=== PATIENT | female | born 1970 | race Caucasian/White ===

== ENCOUNTER → 2020-01-29 15:42 | Outpatient (BNVA) | payer MEDICARE, MEDICAID, SELFPAY | PROVIDERS: Visit Provider Internal Medicine | DX: E11.9 Type 2 diabetes mellitus without complications (principal); Z79.4 Long term (current) use of insulin; K75.81 Nonalcoholic steatohepatitis (NASH); E78.5 Hyperlipidemia, unspecified; Q90.9 Down syndrome, unspecified | CPT/HCPCS: 80053; 80061; 83036; 84443 ==

== ENCOUNTER 2020-03-13 08:40 | Outpatient (CLI) | payer MEDICARE, MEDICAID, SELFPAY ==
--- NOTE | 2020-03-13 08:49 | MM_ITS ---
WS: [id number] Bilateral screening digital mammogram, 03/13/2020 Clinical Data: SCREENING Comparison: 02/07/2019, 09/12/2017, 09/05/2016, 09/02/2015. Findings: The breast parenchymal pattern shows fibroglandular tissue No spiculated masses or clustered calcific ations are seen. There are no secondary signs of carcinoma. MM/[id number] Impression: 1. Negative bilateral mammogram unchanged. 2. Recommend annual screening mammograms. BIRADS: 1-Negative FOLLOW UP: 1 Year Follow-up The CAD freight checker was used.
== END 2020-03-13 08:41 | disposition home or self-care (01) ==
LOC: RADSHAW 08:45
PROVIDERS: PCP Internal Medicine; Visit Provider Internal Medicine
DX: Z12.31 Encounter for screening mammogram for malignant neoplasm of breast (principal)
CPT/HCPCS: 77067

== ENCOUNTER 2020-03-13 09:44 | Outpatient (CLI) | payer MEDICARE, MEDICAID, SELFPAY ==
[2020-03-13 10:40] LABS: Estmated Average Glucose 131; Hemoglobin A1C 6.2 % (4.0-6.0)
[2020-03-13 10:45] LABS: Alanine Aminotransferase 40 U/L (0-33); Albumin Level 4.5 g/dL (3.5-5.2); Alkaline Phosphatase 101 IU/L (35-105); Anion Gap 15.3 (5-19); Aspartate Amino Transferase 39 U/L (0-32); Blood Urea Nitrogen 13 mg/dL (6-20); Calcium 10.1 mg/dL (8.5-10.5); Carbon Dioxide 26 mmol/L (22-29); Chloride 102 mmol/L (98-107); Chol HDL Ratio 3.22 mg/dL (0.0-4.40); Cholesterol 148 mg/dL (0-200); Glomerular Filtration Rate 106.3 mL/min (90-130); Glucose 104 mg/dL (65-115); HDL Cholesterol 46 mg/dL (60-100); LDL Cholesterol Calculated 77 mg/dL (50-129); LDL HDL Ratio 1.67 RATIO (0.00-3.22); Osmolality Calculated 288 mOsm/kg (285-295); Potassium 4.3 mmol/L (3.5-5.1); Sodium 139 mmol/L (136-145); Total Bilirubin 0.5 mg/dL (0.15-1.2); Total Protein 7.5 g/dL (6.6-8.7); Triglycerides 125 mg/dL (0-150)
== END 2020-03-13 09:45 | disposition home or self-care (01) ==
LOC: LAB 09:47
PROVIDERS: PCP Internal Medicine; Visit Provider Internal Medicine
DX: E11.9 Type 2 diabetes mellitus without complications (principal); Q90.9 Down syndrome, unspecified; E78.5 Hyperlipidemia, unspecified; Z79.4 Long term (current) use of insulin; K75.81 Nonalcoholic steatohepatitis (NASH)
CPT/HCPCS: 36415; 80053; 80061; 83036; 88262

== ENCOUNTER → 2020-10-12 15:25 | Outpatient (BNVA) | payer MEDICARE, MEDICAID, SELFPAY | PROVIDERS: PCP Internal Medicine; Visit Provider Internal Medicine | DX: Z01.812 Encounter for preprocedural laboratory examination (principal); Z12.11 Encounter for screening for malignant neoplasm of colon; Z20.822 Contact with and (suspected) exposure to COVID-19 | CPT/HCPCS: 87635 ==

== ENCOUNTER 2020-10-16 07:31 | Day surgery (SDC) | payer MEDICARE, MEDICAID, SELFPAY ==
[2020-10-15 14:10] VITALS: BMI 32.4
--- NOTE | 2020-10-16 08:06 | ANES.PREANE2 ---
Pre-Anesthetic Assessment Pre-Anesthetic Assessment: Height/Weight: Height 1.52 m Weight 75.296 kg Preop Diagnosis: e Proposed Procedure: Operation Date: 10/16/20 09:00 Proposed Procedures p Colonoscopy G0121 Z12.11(Not Applicable) - Cedric Padilla MD Was Beta Cristela taken within 24 hours: N/A Was Clonidine taken within 24 hours: N/A Social: Social History: No alcohol and No tobacco Exam: Pre-Anes Outpt Exam: alert, oriented x 3, clear to auscultation bilaterally and regular rate & rhythm Airway: Submandibular: WNL Cervical ROM: WNL MP: 2 Dentition: Chipped Metabolic: Metabolic: DM, Hyperlipidemia and Morbid obesity Neuropsych: Comments: MR Anesthetic Plan: ASA status: 3 Anesthesia: MAC Risk of > 500 ml blood loss (7ml/kg in children): No PFSH Anesthesia PFSH: Medical History (Updated 10/06/20 @ 09:52 by Cedric Padilla MD) Diabetes Dyslipidemia NLD (necrobiosis lipoidica diabeticorum) Social History Smoking and tobacco status: never smoked Alcohol intake: never Adopted: No History of recent travel: No Current gender identity: Female Data Anesthesia Cardiac Studies: No Data to Display
[2020-10-16 08:12] VITALS: BP 105/72; PULSE 79; RESP 16; TEMP 36.1; O2SAT 100
[2020-10-16] MEDS: sodium chloride 0.9% 1,000 ML 30 ML IV (08:21)
[2020-10-16 08:25] LABS: Glucose Point of Care 97 mg/dL (70-110)
--- NOTE | 2020-10-16 09:11 | W.PM.OPSFHP ---
Same Day Surgery H&P Indication for Procedure/HPI DATE OF PROCEDURE: October 16, 2020 CHIEF COMPLAINT/INDICATIONFOR SURGICAL PROCEDURE: Routine screening average risk PREOP DIAGNOSIS: e PLANNED PROCEDRUE: Operation Date: 10/16/20 09:00 Proposed Procedures p Colonoscopy G0121 Z12.11(Not Applicable) - Cedric Padilla MD Medications/Allergies* Allergies/Adverse Reactions Allergy/AdvReac Type Severity Reaction Status Date / Time latex Allergy ALGY-Rash Verified 10/16/20 08:10 metformin Allergy ADR-Diarrhe Verified 10/16/20 08:10 a Current Medications: Generic Name Dose Route Start Last Admin Trade Name Freq PRN Reason Stop Dose Admin Sodium Chloride 1,000 mls @ 30 mls/hr 10/16/20 07:45 10/16/20 08:21 Sodium Chloride 0.9% IV 10/17/20 07:44 30 mls/hr .Q24H PERRI Administration Pertinent History/Comorbid Conditions* Medical History (Updated 10/06/20 @ 09:52 by Cedric Padilla MD) Diabetes Dyslipidemia NLD (necrobiosis lipoidica diabeticorum) Social History Smoking and tobacco status: never smoked Alcohol intake: never Adopted: No History of recent travel: No Current gender identity: Female Pertinent Exam Findings alert, oriented x 3, clear to auscultation bilaterally and regular rate & rhythm Recommendations Surgery/Procedure today Coding Level of Care Code Acute Buffer Inflated Pad for Graciela Felix
--- NOTE | 2020-10-16 09:37 | ANE.PACU2 ---
Inpatient post-anesthesia follow up: Airway intact: Yes Vital signs: Temperature 97 F Pulse Rate 79 Respiratory Rate 16 Blood Pressure 105/72 Pulse Oximetry 100 Oxygen Delivery Me thod Room Air Oxygen Flow Rate Fraction of Inspir ed Oxygen Hydration adequate: Yes Nausea and vomiting: No Pain level: 1 Mental status: Baseline
[2020-10-16 09:44] VITALS: BP 94/64; PULSE 74; RESP 18; TEMP 36.1; O2SAT 94
[2020-10-16 09:54] VITALS: BP 97/65; PULSE 85; RESP 18; O2SAT 97
== END 2020-10-16 09:57 | disposition home or self-care (01) ==
PROVIDERS: PCP Internal Medicine; Visit Provider Internal Medicine
PROC: 0DJD8ZZ Inspection of Lower Intestinal Tract, Via Natural or Artificial Opening Endoscopic (ICD-10-PCS; CPT 45378; principal; 2020-10-16 09:00)
DX: Z12.11 Encounter for screening for malignant neoplasm of colon (principal); K57.30 Diverticulosis of large intestine without perforation or abscess without bleeding; E78.5 Hyperlipidemia, unspecified; E11.9 Type 2 diabetes mellitus without complications; E66.01 Morbid (severe) obesity due to excess calories; Z68.32 Body mass index [BMI] 32.0-32.9, adult
CPT/HCPCS: 36416; 82962; 96360; G0121; J2704; J7030

== ENCOUNTER 2020-11-06 14:43 | Outpatient (CLI) | payer MEDICARE, MEDICAID, SELFPAY ==
--- NOTE | 2020-11-06 15:15 | XR_ITS ---
WS: [id number] SCREENING DEXA SCAN [place] CLINICAL INFORMATION: bone mass study COMPARISON: None. FINDINGS: The L1-L4 bone mineral density measures 1.231 g/cm2. This corresponds to a T score score of 0.4 and Z score of 0.5. Left femoral neck bone mineral density measures 0.977 g/cm2. This corresponds to a T score of -0.2 an d Z score of 0.0. Right femoral neck bone mineral density measures 0.964 g/cm2. This corresponds to a T score -0.3of an d Z score of -0.1. Mean femoral neck bone mineral density measures 0.970 g/cm2. This corresponds to a T score of -0.3 an d Z score of 0.0. XR/XR DEXA axial skeleton* [id number] IMPRESSION: Normal bone mineralization. Patient's FRAX calculated 10 year probability for major osteoporotic fracture i s 3.8 % and osteoporotic hip fracture is 0.2%.
== END 2020-11-06 14:44 | disposition home or self-care (01) ==
LOC: RADWPI 14:50
PROVIDERS: PCP Internal Medicine; Visit Provider Internal Medicine
DX: Z78.0 Asymptomatic menopausal state (principal)
CPT/HCPCS: 77080

== ENCOUNTER → 2021-03-18 15:20 | Outpatient (BNVA) | payer MEDICARE, MEDICAID, SELFPAY | PROVIDERS: PCP Internal Medicine; Visit Provider Internal Medicine | DX: Z79.4 Long term (current) use of insulin; E78.5 Hyperlipidemia, unspecified; E11.620 Type 2 diabetes mellitus with diabetic dermatitis | CPT/HCPCS: 80053; 80061; 83036; 84443 ==

== ENCOUNTER 2021-09-17 07:47 | Outpatient (CLI) | payer MEDICARE, MEDICAID, SELFPAY ==
--- NOTE | 2021-09-17 07:53 | MM_ITS ---
WS: [id number] BILATERAL 3D TOMOSYNTHESIS DIGITAL SCREENING MAMMOGRAPHY WITH CAD CLINICAL INFORMATION: SCREENING HISTORY: Screening mammogram. No current complaints. COMPARISON: March 13, 2020 TECHNIQUE: Bilateral CC and MLO views. FINDINGS: Scattered fibroglandular densities bilaterally. A few incidental punctate calcifications. Lucent cent ered calcifications LEFT breast. No suspicious focal mass, asymmetry, calcifications, or architectura l distortion. No evidence of malignancy. MM/[id number] IMPRESSION: BI-RADS: 2-Benign FOLLOW UP: 1 Year Follow-up Recommend return to annual screening mammography.
== END 2021-09-17 07:48 | disposition home or self-care (01) ==
LOC: RADSHAW 07:49
PROVIDERS: PCP Internal Medicine; Visit Provider Internal Medicine
DX: Z12.31 Encounter for screening mammogram for malignant neoplasm of breast (principal)
CPT/HCPCS: 77063; 77067

== ENCOUNTER 2022-04-06 11:19 | Outpatient (CLI) | payer MEDICARE, MEDICAID, SELFPAY ==
[2022-04-06 11:44] LABS: Basophils % 0.5 %; Eosinophils # 0.1 10^3/uL (0.0-0.8); Eosinophils % 1.2 %; Hematocrit 40.2 % (37.0-47.0); Hemoglobin 12.9 g/dL (11.5-15.3); Lymphocytes # 2.4 10^3/uL (0.8-4.8); Lymphocytes % 39.7 %; Mean Corpuscular HGB Conc 32.1 g/dL (30.0-36.0); Mean Corpuscular Hemoglobin 27.2 pg (28.0-34.0); Mean Corpuscular Volume 84.8 fl (81-99); Mean Platelet Volume 9.5 fL (7.4-10.4); Monocytes # 1.1 10^3/uL (0.2-0.9); Monocytes % 18.3 %; Neutrophils # 2.37 10^3/uL (1.8-7.7); Neutrophils % 39.6 %; Nucleated Red Blood Cells % 0 %; Platelet Count 209 10^3/cmm (130-400); Red Blood Count 4.74 10^6/uL (4.1-5.3); Red Cell Distribution Width 14.5 % (12.1-15.1)
[2022-04-06 12:31] LABS: Alanine Aminotransferase 30 U/L (0-33); Albumin Level 3.9 g/dL (3.5-5.2); Alkaline Phosphatase 65 U/L (35-105); Anion Gap 15.4 (5-19); Aspartate Amino Transferase 28 U/L (0-32); Blood Urea Nitrogen 15 mg/dL (6-20); Calcium 9.4 mg/dL (8.5-10.5); Carbon Dioxide 26 mmol/L (22-29); Chloride 102 mmol/L (98-107); Chol HDL Ratio 3.71 mg/dL (0.0-4.40); Cholesterol 130 mg/dL (0-200); Globulin 2.9 g/dL (1.3-4.6); Glomerular Filtration Rate 105.4 mL/min (90-130); Glucose 64 mg/dL (65-115); HDL Cholesterol 35 mg/dL (60-100); LDL Cholesterol Calculated 65 mg/dL (50-129); LDL HDL Ratio 1.86 RATIO (0.00-3.22); Osmolality Calculated 287 mOsm/kg (285-295); Potassium 4.4 mmol/L (3.5-5.1); Sodium 139 mmol/L (136-145); Thyroid Stimulating Hormone 3.43 uIU/mL (0.27-4.20); Total Bilirubin 0.8 mg/dL (0.15-1.2); Total Protein 6.8 g/dL (6.6-8.7); Triglycerides 150 mg/dL (0-150)
[2022-04-06 13:28] LABS: Estmated Average Glucose 146; Hemoglobin A1C 6.7 % (4.0-6.0)
== END 2022-04-06 11:20 | disposition home or self-care (01) ==
LOC: LAB 11:23
PROVIDERS: PCP Internal Medicine; Visit Provider Internal Medicine
DX: E11.9 Type 2 diabetes mellitus without complications (principal); Z79.4 Long term (current) use of insulin
CPT/HCPCS: 36415; 80053; 80061; 83036; 84443; 85025

== ENCOUNTER 2022-09-08 14:31 | Inpatient (IN) | payer MEDICARE, MEDICAID, SELFPAY ==
[2022-09-08] VITALS (14 sets, daily range): BP systolic 91–112; BP diastolic 57–71; PULSE 90–117; RESP 16–20; TEMP 36.4–37.4; O2SAT 94–100; BMI 29.9; BMI 30.4
--- NOTE | 2022-09-08 16:19 | ED_ITS ---
HPI - Recheck/Abnormal Lab/Rx General: Chief Complaint: Recheck/Abnormal Lab/Rx Stated Complaint: was sent by dr. padilla for transfusion Time Seen by Provider: 09/08/22 15:44 Source: patient and other (Caregiver) Mode of arrival: ambulatory History of Present Illness: 52-year-old female who presents emergency room with complaints of abnormal lab. She was sent by Dr. Padilla. Her hemoglobin is found to be low. She is tachycardic on arrival but she denies any symptoms. No chest or abdominal pain no hematochezia melena hematemesis or coffee-ground emesis. Patient's past medical and surgical history is reviewed she is ld betic. No UTI cardiac or respiratory symptoms. She is relatively pale in appearance and mildly hypotensive MD complaint: abnormal lab Symptoms since prior visit: no new symptoms Context: called for abnormal lab result Associated symptoms: none Review of Systems Const: Denies: fever(s), chills, body aches, change in appetite, fatigue or malaise ENMT: Denies: throat pain, ear or mastoid pain, nasal discharge or nasal congestion Card: Denies: chest pain, edema, dyspnea on exertion or orthopnea Resp: Denies: dyspnea, productive cough or non-productive cough GI: Denies: abdominal pain, nausea, vomiting, hematemesis, coffee ground emesis, diarrhea, constipation, bloating, hematochezia or melena : Denies: flank pain, difficulty voiding, dysuria, urinary frequency or urinary urgency Skin/Breast: Denies: rash or pruritus PFS ED PFSH: Medical History Diabetes Dyslipidemia NLD (necrobiosis lipoidica diabeticorum) Social History Smoking and tobacco status: never smoked Alcohol intake: never Adopted: No Current gender identity: Female Physical Exam Const: GENERAL APPEARANCE: cooperative and comfortable OR IENTATION/CONSCIOUSNESS: Yes awake, Yes oriented to person, Yes oriented to place and Yes oriented to time HENMT: COMMON NORMALS: normocephalic, atraumatic and hearing grossly normal bilaterally HEAD & SCALP: normocephalic and atraumatic Resp: COMMON NORMALS: normal respiratory effort, No retractions, No use of accessory muscles and clear to auscultation bilaterally AUSCULTATION: clear to auscultation bilaterally Cardio: COMMON NORMALS: regular rate, regular rhythm and No murmurs present (Cardio) RATE: regular rate RHYTHM: regular rhythm GI: COMMON NORMALS: Soft to palpation and No hepatosplenomegaly present AUSCULTATION: Yes normoactive bowel sounds PALPATION: Yes Soft to palpation, No Tenderness to palpation present (GI), No Guarding due to palpation present (GI) and Yes No hepatosplenomegaly present RECTAL EXAM: visual inspection normal, normal sphincter tone and heme negative stool Extremity: COMMON NORMALS: normal to inspection, capillary refill normal, no clubbing, cyanosis or edema, no calf tenderness and no pedal edema Neuro: SENSORIUM/ORIENTATION: Yes oriented to person, Yes oriented to place and Yes oriented to time Skin: COMMON NORMALS: no rashes or lesions noted GENERAL SKIN EXAM: no rashes or lesions noted Course Vital Signs: Vital signs: Vital Signs Temperature 97.9 F 09/09/22 07:52 Pulse Rate 89 09/09/22 07:52 Respiratory Rate 18 09/09/22 07:52 Blood Pressure 97/62 09/09/22 07:52 Pulse Oximetry 97 09/09/22 07:52 Oxygen Delivery Me thod 09/09/22 07:52 MDM - Recheck/Abnormal Lab/Rx Medical Decision Making Significant anemia with a MCV that is in the normal range. Hemoccult is negative. Will admit transfuse patient may need EGD consulted to the hospitalist orders written discussed with patient and caregiver. Lab Data 09/08/22 16:05 09/08/22 16:05 Laboratory Results WBC 4.9 10^3/uL (4.0-10.0) 09/08/22 16:05 RBC 2.07 10^6/uL (4.1-5.3) L 09/08/22 16:05 Hgb 5.9 g/dL (11.5-15.3) L* 09/08/22 16:05 Hct 19.0 % (37.0-47.0) L* 09/08/22 16:05 MCV 91.8 fl (81-99) 09/08/22 16:05 MCH 28.5 pg (28.0-34.0) 09/08/22 16:05 MCHC 31.1 g/dL (30.0-36.0) 09/08/22 16:05 RDW 17.2 % (12.1-15.1) H 09/08/22 16:05 Plt Count 166 10^3/cmm (130-400) 09/08/22 16:05 MPV 9.8 fL (7.4-10.4) 09/08/22 16:05 Lymph % (Auto) Not Reportable 09/08/22 16:05 [place] % (Auto) Not Reportable 09/08/22 16:05 Lymph # (Auto) Not Reportable 09/08/22 16:05 [place] # (Auto) Not Reportable 09/08/22 16:05 Total Counted 100 (0-100) 09/08/22 16:05 Atypical Lymphs % Not Reportable 09/08/22 16:05 Absolute Neutrophils 1.7 10^3/cmm (1.4-6.5) 09/08/22 16:05 Segmented Neutrophils 31 % 09/08/22 16:05 Abs Segm Neuts (Man) 1.5 10/cmm (1.6-7.1) L 09/08/22 16:05 Band Neutrophils 3.0 % 09/08/22 16:05 Abs Band Neuts (Man) 0.1 10^3/cmm (0.0-1.2) 09/08/22 16:05 Lymphocytes (Manual) 36 % 09/08/22 16:05 Monocytes (Manual) 18.0 % 09/08/22 16:05 Absolute Monocytes 0.9 10^3/cmm (0.1-0.6) H 09/08/22 16:05 Eosinophils (Manual) 1 % 09/08/22 16:05 Absolute Eosinophils 0.0 10^3/cmm (0.0-0.7) 09/08/22 16:05 Basophils (Manual) 0.0 % 09/08/22 16:05 Absolute Basophils 0.0 10^3/cmm (0.0-0.2) 09/08/22 16:05 Metamyelocytes 5.0 % 09/08/22 16:05 Myelocytes 4.0 % 09/08/22 16:05 Nucleated RBCs 2.0 /100WBC (0-1) H 09/08/22 16:05 Platelet Estimate Normal (Normal) 09/08/22 16:05 PT 14.00 SECONDS (12.1-14.9) 09/08/22 16:05 INR 1.05 (0.8-1.2) 09/08/22 16:05 APTT 25.4 SECONDS (23.9-36.7) 09/08/22 16:05 Sodium 135 mmol/L (136-145) L 09/08/22 16:05 Potassium 4.1 mmol/L (3.5-5.1) 09/08/22 16:05 Chloride 100 mmol/L (98-107) 09/08/22 16:05 Carbon Dioxide 25 mmol/L (22-29) 09/08/22 16:05 Anion Gap 14.1 (5-19) 09/08/22 16:05 BUN 24 mg/dL (6-20) H 09/08/22 16:05 Creatinine 0.8 mg/dL (0.5-0.9) 09/08/22 16:05 GFR Calculation 75.3 mL/min (90-130) L 09/08/22 16:05 Glucose 151 mg/dL (65-115) H 09/08/22 16:05 Calculated Osmolality 287 mOsm/kg (285-295) 09/08/22 16:05 Calcium 9.4 mg/dL (8.5-10.5) 09/08/22 16:05 Iron 138 ug/dL (37-145) 09/08/22 16:05 TIBC 294 mcg/dl 09/08/22 16:05 % Saturation 46.9 % (20-50) 09/08/22 16:05 Unsat Iron Binding 156 ug/dL (112-347) 09/08/22 16:05 Transferrin 255 mg/dL (200-360) 09/08/22 16:05 Ferritin 408 ng/mL (15-150) H 09/08/22 16:05 Vitamin B12 1053 pg/mL (232-1245) 09/08/22 16:05 Folate > 20.0 ng/mL (4.8-37.3) 09/08/22 16:05 Blood Type A Positive 09/08/22 16:05 Rho(D) Type Positive 09/08/22 16:05 Antibody Screen Negative 09/08/22 16:05 Crossmatch See Detail 09/08/22 16:05 Discharge Plan Discharge Patient Disposition: Placed in Observation Admit Provider: Juan Hood Clinical Impression: Anemia Coding Level of Care Code ED Rn Long Term Care for Graciela Felix
[2022-09-08 16:36] LABS: Mean Corpuscular HGB Conc 31.1 g/dL (30.0-36.0); Mean Corpuscular Hemoglobin 28.5 pg (28.0-34.0); Mean Corpuscular Volume 91.8 fl (81-99); Mean Platelet Volume 9.8 fL (7.4-10.4); Platelet Count 166 10^3/cmm (130-400); Red Blood Count 2.07 10^6/uL (4.1-5.3); Red Cell Distribution Width 17.2 % (12.1-15.1); White Blood Count 4.9 10^3/uL (4.0-10.0)
[2022-09-08 16:54] LABS: INR 1.05 (0.8-1.2)
[2022-09-08 16:55] LABS: Partial Thromboplastin Time 25.4 SECONDS (23.9-36.7)
[2022-09-08 16:57] LABS: Anion Gap 14.1 (5-19); Blood Urea Nitrogen 24 mg/dL (6-20); Calcium 9.4 mg/dL (8.5-10.5); Carbon Dioxide 25 mmol/L (22-29); Chloride 100 mmol/L (98-107); Glomerular Filtration Rate 75.3 mL/min (90-130); Glucose 151 mg/dL (65-115); Osmolality Calculated 287 mOsm/kg (285-295); Potassium 4.1 mmol/L (3.5-5.1); Sodium 135 mmol/L (136-145)
[2022-09-08 17:12] LABS: Slide Review Slide Review Perform
[2022-09-08 17:15] LABS: Hemoglobin 5.9 g/dL (11.5-15.3)
[2022-09-08 17:18] LABS: Absolute Neutrophil 1.7 10^3/cmm (1.4-6.5); Absolute Segmented Neutrophil 1.5 10/cmm (1.6-7.1); Band Neutrophils Absolute 0.1 10^3/cmm (0.0-1.2); Eosinophils 1 %; Lymphocytes 36 %; Monocytes Absolute 0.9 10^3/cmm (0.1-0.6); Platelet Estimate Normal (Normal); Segmented Neutrophils 31 %; Total Cells Counted 100 (0-100)
--- NOTE | 2022-09-08 17:51 | P.HP_ITS ---
Providers/Chief Complaint Primary Care Provider: Cedric Padilla MD Chief Complaint: was sent by dr. padilla for transfusion History of Present Illness Luma Knapp is a 52 year old female with past medical history of diabetes, intellectual disability, Was sent by the primary care physician to ER for the management of abnormal lab her hemoglobin was found to be 5.9 and hematocrit 19, when I interacted with the patient, she denied any chest pain shortness of breath palpitation, abdominal pain nausea vomiting, she was slightly tachycardic in the ER with maximum noted heart rate of 117. Pertinent labs: WBC 4.9, H&H 5.9/19 PLT : 166 , sodium 135, potassium 4.1, BUN 24, serum creatinine 0.8, random blood sugar 151, PT 14 INR 1.05, APTT 25. FOBT negative. Review of Systems General: Reports: 10 or more systems reviewed and unremarkable except in HPI and below Const: Denies: fever(s), chills, body aches, change in appetite or diaphoresis Card: Denies: palpitations, edema, swelling of feet/ankles, dyspnea on exertion, orthopnea or leg pain with exertion Resp: Denies: dyspnea, productive cough, wheezing or pain on inspiration GI: Denies: abdominal pain, nausea, vomiting, diarrhea or constipation : Denies: flank pain Musc: Denies: back pain, extremity pain or extremity swelling Neuro: Denies: headache(s), difficulty walking or confusion Medications/Allergies Home Medications Medication Instructions Recorded Confirmed Last Taken Type magnesium hydroxide 400 mg/5 mL 30 ml PO DAILY PRN constipation 02/07/20 09/08/22 10/15/20 Rx oral suspension (Milk of Magnesia) #355 mL liraglutide 0.6 mg/0.1 mL (18 mg/3 1.8 mg (0.3 mL) SUBCUT Q24H 90 05/19/21 09/08/22 09/07/22 Rx mL) subcutaneous pen injector days #27 mL (Victoza 3-Arya) glimepiride 4 mg tablet (Amaryl) 4 mg PO DAILY #90 tabs 06/21/21 09/08/22 09/08/22 Rx pen needle, diabetic, safety 30 #100 ea 09/13/21 09/08/22 Unknown Rx gauge x 1/3 (Novofine Autocover) lisinopril 2.5 mg tablet 2.5 mg PO DAILY #90 tabs 11/01/21 09/08/22 09/08/22 Rx Vit D 1000iu See Rx Instructions .Route 01/05/22 09/08/22 09/08/22 Rx .COMPLEX #90 ea acetaminophen 325 mg tablet 650 mg PO QID PRN pain #90 tabs 01/10/22 09/08/22 Unknown Rx (Tylenol) cetirizine 10 mg tablet 10 mg PO DAILY #30 tabs 01/10/22 09/08/22 09/08/22 Rx sitagliptin phosphate 100 mg 100 mg PO DAILY #90 tabs 02/07/22 09/08/22 09/08/22 Rx tablet (Januvia) multivitamin (One Daily Essential See Rx Instructions .Route 02/22/22 09/08/22 09/08/22 Rx tablet) .COMPLEX #30 tabs metformin 500 mg tablet See Rx Instructions .Route 03/15/22 09/08/22 09/07/22 Rx .COMPLEX #60 tabs blood sugar diagnostic (Truetest #100 ea 04/07/22 09/08/22 Unknown Rx Test Strips) lancets 30 gauge (TRUEplus Lancets) #100 ea 04/07/22 09/08/22 Unknown Rx dapagliflozin 10 mg tablet 10 mg PO DAILY #90 tabs 04/14/22 09/08/22 09/08/22 Rx (Farxiga) lovastatin 40 mg tablet 40 mg PO QPM 09/08/22 09/08/22 09/07/22 History Allergies Allergy/AdvReac Type Severity Reaction Status Date / Time latex Allergy ALGY-Rash Verified 09/08/22 16:06 PFSH Acute PFSH: Medical History Diabetes Dyslipidemia NLD (necrobiosis lipoidica diabeticorum) Social History Smoking and tobacco status: never smoked Alcohol intake: never Adopted: No Current gender identity: Female Vitals/I&O/Wt Last Vital Signs Temp 97.8 F 09/08/22 14:44 Pulse 117 H 09/08/22 14:44 Resp 20 H 09/08/22 14:44 BP 99/59 09/08/22 14:44 Pulse Ox 100 09/08/22 14:44 O2 Del Method 09/08/22 14:44 Weight last 48 hrs Weight 69.4 kg Physical Exam Const: COMMON NORMALS: patient oriented x3 HENMT: COMMON NORMALS: normocephalic and atraumatic HEAD & SCALP: nor mocephalic and atraumatic Resp: COMMON NORMALS: clear to auscultation bilaterally AUSCULTATION: clear to auscultation bilaterally Cardio: COMMON NORMALS: regular rate, regular rhythm, S1 normal heart sound present, S2 normal heart sound present, No gallops present (Cardio), No murmurs present (Cardio), No rub (Cardio) and Peripheral pulses 2+ throughout RATE: regular rate RHYTHM: regular rhythm HEART SOUNDS: S1 normal heart sound present and S2 normal heart sound present PERIPHERAL PULSES: Peripheral pulses 2+ throughout GI: COMMON NORMALS: Normal to inspection, nondistended, normoactive bowel so unds present, Soft to palpation, non-tender, No hepatosplenomegaly present and no masses AUSCULTATION: Yes normoactive bowel sounds PALPATION: Yes Soft to palpation and Yes No hepatosplenomegaly present RECTAL EXAM: deferred Extremity: COMMON NORMALS: no clubbing, cyanosis or edema and no pedal edema Neuro: COMMON NORMALS: patient oriented x3 Data 09/08/22 16:05 09/08/22 16:05 A&P Assessment and plan (1) Anemia: (2) Diabetes: Qualifiers: Diabetes mellitus complication status: without complication Diabetes mellitus skilled nursing insulin use: with executive coach use Diabetes mellitus type: type 2 Qualified Code(s): E11.9 - Type 2 diabetes mellitus without complications; 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 Severe normocytic anemia: Admission H&H:5.9/19 Negative FOBT Follow serum iron, serum ferritin, TIBC, transferrin saturation, B12, folic acid Current plan is to transfuse 2 unit PRBC Monitor H&H For now we will continue with Protonix 40 IV daily. Patient will need hematology follow-up as outpatient, for further work-up of, anemia, possible bone marrow biopsy. History of diabetes: LDSSI, monitor fingerstick glucose, diabetic diet CODE STATUS: Full code DVT prophylaxis on Lovenox Attestations Medical Necessity Statement*: Patient is to be in hospital for management of symptomatic anemia. Anticipated length of stay greater than 2 midnights. Coding Level of Care Code 75381 Diagnoses Anemia D64.9 Diabetes E11.9; Z79.4 Diabetes mellitus complication status: without complication Diabetes mellitus executive coach insulin use: with executive coach use Diabetes mellitus type: type 2
--- NOTE | 2022-09-08 18:29 | PC.NURSE ---
blood was started, pt had no reaction, states she feels fine, all vitals were good
[2022-09-08] MEDS: enoxaparin 40 mg/0.4 mL Syringe SUBCUT (19:35)
--- NOTE | 2022-09-08 19:43 | PC.NURSE ---
pt arrived on medsurg at this time
[2022-09-08 20:00] LABS: Ferritin 408 ng/mL (15-150); Iron 138 ug/dL (37-145); Percent Saturation 46.9 % (20-50); Total Iron Binding Capacity 294 mcg/dl; Transferrin 255 mg/dL (200-360); Unsaturated Iron Binding 156 ug/dL (112-347)
[2022-09-08 20:15] LABS: Vitamin B12 1053 pg/mL (232-1245)
[2022-09-08] MEDS: pantoprazole 40 mg SDV 80 MG IVP (20:38)
[2022-09-08] MEDS: atorvastatin 40 mg Tablet 20 MG PO (20:39)
[2022-09-08 20:47] LABS: Glucose Point of Care 149 mg/dL (70-110)
[2022-09-08] MEDS: acetaminophen 325 mg Tablet 650 MG PO (21:19)
[2022-09-08] MEDS: insulin lispro 100 unit/1 mL SUBCUT (21:43)
[2022-09-08 22:03] LABS: Glucose Point of Care 172 mg/dL (70-110)
[2022-09-09 00:34] LABS: Folate Level > 20.0 ng/mL (4.8-37.3)
[2022-09-09] MEDS: sodium chloride 0.9% 1,000 ML 100 ML IV (00:43)
[2022-09-09 01:12] VITALS: BP 94/61; PULSE 82; TEMP 36.8; O2SAT 94
[2022-09-09 04:00] VITALS: BP 97/63; PULSE 57; RESP 18; TEMP 36.9; O2SAT 95
[2022-09-09 04:44] VITALS: PULSE 85
[2022-09-09 04:57] LABS: Basophils % 0.5 %; Eosinophils % 0.2 %; Hematocrit 24.9 % (37.0-47.0); Lymphocytes # 1.7 10^3/uL (0.8-4.8); Lymphocytes % 30.4 %; Mean Corpuscular HGB Conc 32.1 g/dL (30.0-36.0); Mean Corpuscular Hemoglobin 28.5 pg (28.0-34.0); Mean Corpuscular Volume 88.6 fl (81-99); Mean Platelet Volume 9.5 fL (7.4-10.4); Monocytes # 1.3 10^3/uL (0.2-0.9); Monocytes % 23.2 %; Neutrophils # 2.07 10^3/uL (1.8-7.7); Neutrophils % 36.4 %; Nucleated Red Blood Cells % 0.5 %; Platelet Count 130 10^3/cmm (130-400); Red Blood Count 2.81 10^6/uL (4.1-5.3); Red Cell Distribution Width 15.8 % (12.1-15.1); White Blood Count 5.7 10^3/uL (4.0-10.0)
[2022-09-09 05:09] LABS: Slide Review Slide Review Perform
[2022-09-09 05:27] VITALS: PULSE 79
[2022-09-09 05:29] LABS: Blood Urea Nitrogen 21 mg/dL (6-20); Calcium 8.4 mg/dL (8.5-10.5); Carbon Dioxide 24 mmol/L (22-29); Chloride 110 mmol/L (98-107); Glucose 92 mg/dL (65-115); Osmolality Calculated 299 mOsm/kg (285-295); Sodium 143 mmol/L (136-145); Thyroid Stimulating Hormone 3.34 uIU/mL (0.27-4.20)
[2022-09-09 06:29] LABS: Glucose Point of Care 106 mg/dL (70-110)
[2022-09-09 07:52] VITALS: BP 97/62; PULSE 89; RESP 18; TEMP 36.6; O2SAT 97
[2022-09-09] MEDS: pantoprazole 40 mg SDV IVP (08:49)
--- NOTE | 2022-09-09 10:01 | PC.CHAP ---
Pastoral Care Encounter/Spiritual Assessment Type of Contact [] Declined director geophysical laboratory visit [] Patient/Family/Request visit [] Outpatient visit [] Follow-up visit [] Physician referral [] Code/Alert [x] Routine visit [] Staff referral [] Actively dying [] Patient sleeping [x] Family support [] [] Out of room [] Palliative care [] [] Receiving care in room [] Pre-surgical visit [] Trauma [] Long length of stay [] ICU visit [] Other: Relational/Emotional Strength [x] Patient feels connected with others/family/visitors/staff [] Distress [] Loneliness/isolation [] Abandonment Spirituality of Patient [x] Person of Sherrie [] Attends Pentecostalism of their Sherrie [x] Believes in Prayer [] Reads Bible or Confucianist materials [] There are Spiritual issues to be addressed Vascular Surgery Physician Interventions [x] Prayer [] Active listening [] Non-anxious presence [] Spiritual/emotional support [] Crisis/trauma care [] Spiritual counseling [] Bereavement support [] Provided bereavement packet [] Provided Bible/devotional materials [] Provided toy/stuffed animal, coloring book to patient or family member [] Provided Communion [] Anointing/[place] [] Salvation [x] Completed spiritual assessment [] Other: Impact on Illness or Injury [] Angry [] Fearful [] Anxious [] Often cries [] Exhaustion [] Unable to work [] Unable to attend denominational [] Unable to walk/stand [] Unable to read [] Unable to drive [] Unable to eat/drink [] Unable to sleep [] Unable to be with family [] Patient intubated [] Other: Summary Time spent with patient 5 min
--- NOTE | 2022-09-09 11:14 | P.DS_ITS ---
Discharge Providers Date of Admission: 09/08/22 18:43 Date of Discharge: September 09, 2022 Attending Provider at Admission: Juan Hood MD Attending Provider at Discharge: Juan Hood MD Primary Care Provider: Cedric Padilla MD Diagnoses at Discharge Discharge Diagnosis (1) Anemia: Status: Inactive (2) Diabetes: Status: Inactive Qualifiers: Diabetes mellitus complication status: without complication Diabetes mellitus [facility] insulin use: with [facility] use Diabetes mellitus type: type 2 Qualified Code(s): E11.9 - Type 2 diabetes mellitus without complications; Z79.4 - senior care (current) use of insulin Reason for Visit Reason for Visit: was sent by dr. padilla for transfusion Hospital Course Hospital Course Luma Knapp is a 52 year old female with past medical history of diabetes, intellectual disability, Was sent by the primary care physician to ER for the management of abnormal lab her hemoglobin was found to be 5.9 and hematocrit 19, when I interacted with the patient, she denied any chest pain shortness of breath palpitation, abdominal pain nausea vomiting, FOBT was negative, serum iron : 138 , serum ferritin:408 , TIBC: 294 , percent saturation 46.vitamin B12 1053, serum folic acid greater than 20, TSH 3.34. During the hospital stay she received 2 units PRBC transfusion, posttransfusion H&H was stable, Patient will need hematology follow-up as outpatient, for further work-up of, anemia, possible bone marrow biopsy. Patient was discharged in stable condition to home with. Physical Exam Const: COMMON NORMALS: patient oriented x3 HENMT: COMMON NORMALS: normocephalic and atraumatic HEAD & SCALP: normocephalic and atraumatic Resp: COMMON NORMALS: normal respiratory effort, No retractions, No use of accessory muscles and clear to auscultation bilaterally EFFORT & INSPECTION: Yes symmetric chest movement AUSCULTATION: clear to auscultation bilaterally Cardio: COMMON NORMALS: regular rate, regular rhythm, S1 normal heart sound present, S2 normal heart sound present, No gallops present (Cardio), No murmurs present (Cardio), No rub (Cardio) and Peripheral pulses 2+ throughout RATE: regular rate RHYTHM: regular rhythm HEART SOUNDS: S1 normal heart sound present and S2 normal heart sound present PERIPHERAL PULSES: Peripheral pulses 2+ throughout GI: COMMON NORMALS: Normal to inspection, nondistended, normoactive bowel sounds present, Soft to palpation, non-tender, No hepatosplenomegaly present and no masses AUSCULTATION: Yes normoactive bowel sounds PALPATION: Yes Soft to palpation and Yes No hepatosplenomegaly present RECTAL EXAM: deferred Extremity: COMMON NORMALS: no clubbing, cyanosis or edema and no pedal edema Neuro: COMMON NORMALS: patient oriented x3 Discharge Data Studies Completed and Pending Pending at discharge Category Date Time Status Basic Metabolic Panel AM LABS Lab 09/10/22 04:00 Ordered Basic Metabolic Panel AM LABS Lab 09/11/22 04:00 Ordered Complete Blood Count w/Auto AM LABS Lab 09/10/22 04:00 Ordered Complete Blood Count w/Auto AM LABS Lab 09/11/22 04:00 Ordered Occult Blood Stool [Immunochemical Fecal OCB] Routine Lab 09/08/22 15:53 Uncollected Laboratory Results WBC 5.7 10^3/uL (4.0-10.0) 09/09/22 04:47 RBC 2.81 10^6/uL (4.1-5.3) L 09/09/22 04:47 Hgb 8.0 g/dL (11.5-15.3) L D 09/09/22 04:47 Hct 24.9 % (37.0-47.0) L D 09/09/22 04:47 MCV 88.6 fl (81-99) 09/09/22 04:47 MCH 28.5 pg (28.0-34.0) 09/09/22 04:47 MCHC 32.1 g/dL (30.0-36.0) 09/09/22 04:47 RDW 15.8 % (12.1-15.1) H 09/09/22 04:47 Plt Count 130 10^3/cmm (130-400) 09/09/22 04:47 MPV 9.5 fL (7.4-10.4) 09/09/22 04:47 Neut % (Auto) 36.4 % 09/09/22 04:47 Lymph % (Auto) 30.4 % 09/09/22 04:47 [place] % (Auto) 23.2 % 09/09/22 04:47 Eos % (Auto) 0.2 % 09/09/22 04:47 Baso % (Auto) 0.5 % 09/09/22 04:47 Neut # (Auto) 2.07 10^3/uL (1.8-7.7) 09/09/22 04:47 Lymph # (Auto) 1.7 10^3/uL (0.8-4.8) 09/09/22 04:47 [place] # (Auto) 1.3 10^3/uL (0.2-0.9) H 09/09/22 04:47 Eos # (Auto) 0.0 10^3/uL (0.0-0.8) 09/09/22 04:47 Baso # (Auto) 0.0 10^3/uL (0.0-0.1) 09/09/22 04:47 Nucleated RBC % (auto) 0.5 % 09/09/22 04:47 Total Counted 100 (0-100) 09/08/22 16:05 Atypical Lymphs % Not Reportable 09/08/22 16:05 Absolute Neutrophils 1.7 10^3/cmm (1.4-6.5) 09/08/22 16:05 Segmented Neutrophils 31 % 09/08/22 16:05 Abs Segm Neuts (Man) 1.5 10/cmm (1.6-7.1) L 09/08/22 16:05 Band Neutrophils 3.0 % 09/08/22 16:05 Abs Band Neuts (Man) 0.1 10^3/cmm (0.0-1.2) 09/08/22 16:05 Lymphocytes (Manual) 36 % 09/08/22 16:05 Monocytes (Manual) 18.0 % 09/08/22 16:05 Absolute Monocytes 0.9 10^3/cmm (0.1-0.6) H 09/08/22 16:05 Eosinophils (Manual) 1 % 09/08/22 16:05 Absolute Eosinophils 0.0 10^3/cmm (0.0-0.7) 09/08/22 16:05 Basophils (Manual) 0.0 % 09/08/22 16:05 Absolute Basophils 0.0 10^3/cmm (0.0-0.2) 09/08/22 16:05 Metamyelocytes 5.0 % 09/08/22 16:05 Myelocytes 4.0 % 09/08/22 16:05 Nucleated RBCs 2.0 /100WBC (0-1) H 09/08/22 16:05 Nucleated RBCs # 0.0 /100WBC 09/09/22 04:47 Platelet Estimate Normal (Normal) 09/08/22 16:05 PT 14.00 SECONDS (12.1-14.9) 09/08/22 16:05 INR 1.05 (0.8-1.2) 09/08/22 16:05 APTT 25.4 SECONDS (23.9-36.7) 09/08/22 16:05 Sodium 143 mmol/L (136-145) 09/09/22 04:47 Potassium 4.0 mmol/L (3.5-5.1) 09/09/22 04:47 Chloride 110 mmol/L (98-107) H 09/09/22 04:47 Carbon Dioxide 24 mmol/L (22-29) 09/09/22 04:47 Anion Gap 13.0 (5-19) 09/09/22 04:47 BUN 21 mg/dL (6-20) H 09/09/22 04:47 Creatinine 0.6 mg/dL (0.5-0.9) 09/09/22 04:47 GFR Calculation 105.0 mL/min (90-130) 09/09/22 04:47 Glucose 92 mg/dL (65-115) 09/09/22 04:47 POC Glucose 106 mg/dL (70-110) 09/09/22 06:26 Calculated Osmolality 299 mOsm/kg (285-295) H 09/09/22 04:47 Calcium 8.4 mg/dL (8.5-10.5) L 09/09/22 04:47 Iron 138 ug/dL (37-145) 09/08/22 16:05 TIBC 294 mcg/dl 09/08/22 16:05 % Saturation 46.9 % (20-50) 09/08/22 16:05 Unsat Iron Binding 156 ug/dL (112-347) 09/08/22 16:05 Transferrin 255 mg/dL (200-360) 09/08/22 16:05 Ferritin 408 ng/mL (15-150) H 09/08/22 16:05 Vitamin B12 1053 pg/mL (232-1245) 09/08/22 16:05 Folate > 20.0 ng/mL (4.8-37.3) 09/08/22 16:05 TSH 3.34 uIU/mL (0.27-4.20) 09/09/22 04:47 Blood Type A Positive 09/08/22 16:05 Rho(D) Type Positive 09/08/22 16:05 Antibody Screen Negative 09/08/22 16:05 Crossmatch See Detail 09/08/22 16:05 Vitals Last Vital Signs Temp 97.9 F 09/09/22 07:52 Pulse 89 09/09/22 07:52 Resp 18 09/09/22 07:52 BP 97/62 09/09/22 07:52 Pulse Ox 97 09/09/22 07:52 O2 Del Method 09/09/22 07:52 Discharge Plan Discharge Patient Disposition: Home Condition: Stable Prescriptions: Continued magnesium hydroxide [Milk of Magnesia] 400 mg/5 mL suspension 30 ml PO DAILY PRN (Reason: constipation) Qty: 355 3RF Rx Instructions: take after 3rd day of no BM Victoza 3-Arya 0.6 mg/0.1 mL (18 mg/3 mL) pen injector 1.8 mg SUBCUT Q24H 90 Days Qty: 27 3RF glimepiride [Amaryl] 4 mg tablet 4 mg PO DAILY Qty: 90 3RF (DME) Novofine Autocover 30 gauge x 1/3 needle See Rx Instructions .ROUTE .MEDSUPPLY Qty: 100 3RF Rx Instructions: As directed lisinopril 2.5 mg tablet 2.5 mg PO DAILY Qty: 90 3RF Vit D 1000iu See Rx Instructions .ROUTE .COMPLEX Qty: 90 3RF Dose Instruction: TAKE THREE CAPSULES BY MOUTH EVERY DAY Rx Instructions: TAKE THREE CAPSULES BY MOUTH EVERY DAY acetaminophen [Tylenol] 325 mg tablet 650 mg PO QID PRN (Reason: pain) Qty: 90 3RF Rx Instructions: or tempature greater than 100 degrees cetirizine 10 mg tablet 10 mg PO DAILY Qty: 30 3RF Januvia 100 mg tablet 100 mg PO DAILY Qty: 90 3RF multivitamin [One Daily Essential] Tablet See Rx Instructions .ROUTE .COMPLEX Qty: 30 3RF Dose Instruction: TAKE ONE TABLET BY MOUTH EVERY MORNING Rx Instructions: TAKE ONE TABLET BY MOUTH EVERY MORNING metformin 500 mg tablet See Rx Instructions .ROUTE .COMPLEX Qty: 60 3RF Dose Instruction: TAKE TWO TABLETS BY MOUTH EVERY DAY with largest meal of THE DAY Rx Instructions: TAKE TWO TABLETS BY MOUTH EVERY DAY with largest meal of THE DAY (DME) lancets [TRUEplus Lancets] 30 gauge misc See Rx Instructions .ROUTE .MEDSUPPLY Qty: 100 12RF Rx Instructions: test two times daily (DME) Truetest Test Strips Strip See Rx Instructions .ROUTE .MEDSUPPLY Qty: 100 12RF Rx Instructions: As directed- two times daily Farxiga 10 mg tablet 10 mg PO DAILY Qty: 90 1RF lovastatin 40 mg tablet 40 mg PO QPM Discharge Orders: Discharge Order (Routine); Ordered 09/09/22 Ordered By: Juan Hood Other Ambulatory Orders: Complete Blood Count w/Auto (Routine) Timeframe: 1 Week Location: Determined by Patient Ordered By: Juan Hood Referrals: Cedric Padilla MD [Primary Care Provider] - 09/15/22 9:20 am Peter Thomas MD [Hospitalist] - 1 week (Oncology office will call you with appointment date and time. ) Patient Instructions: Anemia, Opioid Safety, Pain Management Discharge Attestations Time Spent in Discharge Care*: less than 30 min Quality Metrics Clinical Quality Measures [ No reported AMI, CVA or VTE this stay] Coding Level of Care Code Acute Code for g Fwd Diagnoses Anemia D64.9 Diabetes E11.9; Z79.4 Diabetes mellitus complication status: without complication Diabetes mellitus [facility] insulin use: with intermediate frame tender use Diabetes mellitus type: type 2
[2022-09-09 11:54] VITALS: BP 97/62; PULSE 89; RESP 18; TEMP 36.6; O2SAT 97
== END 2022-09-09 11:55 | disposition home or self-care (01) | DRG 812 ==
LOC: ER 17:46 → MEDSURG 18:44
PROVIDERS: Emergency Medicine; Admitting Provider Internal Medicine; Emergency Provider Family Medicine; PCP Internal Medicine; Visit Provider Internal Medicine
DX: D64.9 Anemia, unspecified (principal); E11.9 Type 2 diabetes mellitus without complications; F79 Unspecified intellectual disabilities; R00.0 Tachycardia, unspecified; I95.9 Hypotension, unspecified; E78.5 Hyperlipidemia, unspecified; Z79.84 Long term (current) use of oral hypoglycemic drugs; Z79.4 Long term (current) use of insulin
CPT/HCPCS: 36415; 36416; 36430; 80048; 82607; 82728; 82746; 82962; 83540; 83550; 84443; 84466; 85007; 85025; 85610; 85730; 86850; 86900; 86920; 96372; C9113; J1650; J1815; J7030; P9016

== ENCOUNTER 2022-09-18 19:51 | Emergency (ER) | payer MEDICARE, MEDICAID, SELFPAY ==
--- NOTE | 2022-09-18 19:53 | XRR_ITS ---
PROCEDURE INFORMATION: Exam: XR Chest Exam date and time: 09/18/2022 8:16 PM Age: 52 years old Clinical indication: Shortness of breath; Additional info: SOB TECHNIQUE: Imaging protocol: Radiologic exam of the chest. Views: 1 view. COMPARISON: No relevant prior studies available. FINDINGS: Lungs: Mild left basilar atelectasis and/or pneumonia. Pleural spaces: Unremarkable. No pleural effusion. No pneumothorax. Heart/Mediastinum: Unremarkable. No cardiomegaly. Bones/joints: Unremarkable. XR/XR chest 1V portable [id number] IMPRESSION: Mild left basilar atelectasis and/or pneumonia.
[2022-09-18 19:55] VITALS: BP 116/56; PULSE 118; RESP 20; TEMP 36.9; O2SAT 98; BMI 31.2
--- NOTE | 2022-09-18 20:13 | ECG_ITS ---
[facility] Test Date: 2022-09-18 Pat Name: Luma Knapp Department: Room: Gender: Female Soc Analyst: : 1970 Requested By: Glory Thompson Order Number: [id number] Esa MD: Adrienne Cochran M.D. Measurements Intervals [place] Rate: 116 P: 57 [place]: 165 QRS: -30 QRSD: 134 T: 10 QT: 382 QTc: 531 Interpretive Statements SINUS TACHYCARDIA RIGHT BUNDLE BRANCH BLOCK [120+ ms QRS DURATION, UPRIGHT V1, 40+ ms S IN I/aVL/V4/V5/V6] POSSIBLE ANTERIOR MYOCARDIAL INFARCTION , OF INDETERMINATE AGE [30 ms Q WAVE IN V3/V4, OR R < 0.2 mV IN V4] No previous ECG available for comparison Electronically Signed On 09-18-2022 22:13:40 CDT by Adrienne Cochran M.D. [email or web address]
--- NOTE | 2022-09-18 20:16 | ED_ITS ---
HPI - Weakness General: Chief complaint: Weakness Stated complaint: SOB Time Seen by Provider: 09/18/22 19:53 Source: patient Mode of arrival: ambulatory Limitations: no limitations History of Present Illness: 52-year-old female who has a history of anemia and was admitted last week for this she states that she had a hemoglobin of 5.9 last week was admitted transfused she states that they not been able to figure out the cause she does have follow-up with oncology she denies any blood in her stool states over the last day though she has been feeling fatigued weak and having some shortness of breath states this is typical when she gets anemic. No vomiting no diarrhea. Associated symptoms: Denies chest pain, dysuria, easy bruising, headache(s), nausea or vomiting Review of Systems Const: Reports: fatigue and malaise Eyes: Denies: blurry vision or eye discomfort ENMT: Denies: throat pain or dental pain Card: Denies: chest pain Resp: Reports: dyspnea GI: Denies: abdominal pain, nausea, vomiting or diarrhea : Denies: dysuria Musc: Denies: neck pain or back pain Skin/Breast: Denies: rash Neuro: Denies: headache(s) Psych: Denies: depression Alfred/Lymph: Denies: easy bruising All/Imm: Denies: urticaria PFSH ED PFSH: Medical History Anemia Diabetes Dyslipidemia NLD (necrobiosis lipoidica diabeticorum) Social History Smoking and tobacco status: never smoked Alcohol intake: never Adopted: No Current gender identity: Female Physical Exam Const: COMMON NORMALS: patient oriented x3 HENMT: COMMON NORMALS: normocephalic and atraumatic HEAD & SCALP: normo cephalic and atraumatic Eye: COMMON NORMALS: Equal, round and reactive pupils present and EOMs intact bilaterally PUPIL: Yes Equal, round and reactive pupils present OTHER: scleral icterus Neck/C-Spine: COMMON NORMALS: full ROM and supple Chest: COMMONS NORMALS: normal inspection of the chest and normal palpation of entire chest wall Resp: COMMON NORMALS: normal respiratory effort, No retractions, No use of accessory muscles and clear to auscultation bilaterally AUSCULTATION: clear to auscultation bilaterally Cardio: COMMON NORMALS: regular rhythm and No murmurs present (Cardio) RATE: tachycardic RHYTHM: regular rhythm GI: COMMON NORMALS: Normal to inspection, nondistended, normoactive bowel sounds present, Soft to palpation, non-tender and no masses PALPATION: Yes Soft to palpation Extremity: COMMON NORMALS: normal to inspection and full ROM Neuro: COMMON NORMALS: patient oriented x3, moves all extremities and no focal motor deficits Psych: COMMON NORMALS: mental status grossly normal, Normal thought process present and cooperative THOUGHT PROCESS: Normal thought process present Skin: COMMON NORMALS: no rashes or lesions noted and no wounds NARRATIVE SKIN EXAM: Pale in appearance/ GENERAL SKIN EXAM: no rashes or lesions noted Course Vital Signs: Vital signs: Vital Signs Temperature 98.5 F 09/19/22 00:00 Pulse Rate 106 H 09/19/22 00:30 Respiratory Rate 17 09/19/22 00:30 Blood Pressure 110/56 09/19/22 00:30 Pulse Oximetry 100 09/19/22 00:30 Oxygen Delivery Me thod 09/18/22 21:19 MDM - Weakness Medical Decision Making Patient presents here with anemia I believe is likely hemolytic anemia she does have an elevated bilirubin along with an elevated LDH which is concerning for hemolysis her blood pressure here has been stable did give her a unit of blood due to her severe anemia I spoke to Janet Salvador will transfer there for high- level care for hematology oncology. Lab Data 09/18/22 20:05 09/18/22 20:05 Radiology Impressions Chest X-Ray 09/18/22 19:53 IMPRESSION: Mild left basilar atelectasis and/or pneumonia. Chest/Abdomen/Pelvis CT 09/18/22 21:54 IMPRESSION: No pulmonary embolus or aortic dissection. IMPRESSION: 1. 16.9 x 15.2 cm moderate to large splenomegaly. 2. 16 mm portal vein suggesting possible portal hypertension. Laboratory Results WBC 5.3 10^3/uL (4.0-10.0) 09/18/22 20:05 RBC 1.40 10^6/uL (4.1-5.3) L 09/18/22 20:05 Hgb 4.2 g/dL (11.5-15.3) L* 09/18/22 21:20 Hct 12.0 % (37.0-47.0) L* 09/18/22 21:20 MCV 95.0 fl (81-99) 09/18/22 20:05 MCH 31.4 pg (28.0-34.0) 09/18/22 20:05 MCHC 33.1 g/dL (30.0-36.0) 09/18/22 20:05 RDW 17.2 % (12.1-15.1) H 09/18/22 20:05 Plt Count 137 10^3/cmm (130-400) 09/18/22 20:05 MPV 9.7 fL (7.4-10.4) 09/18/22 20:05 Lymph % (Auto) Not Reportable 09/18/22 20:05 [place] % (Auto) Not Reportable 09/18/22 20:05 Reticulocyte % (Auto) 2.0 % (0.5-2.0) 09/18/22 20:05 Lymph # (Auto) Not Reportable 09/18/22 20:05 [place] # (Auto) Not Reportable 09/18/22 20:05 Total Counted 100 (0-100) 09/18/22 20:05 Atypical Lymphs % 3.0 % (0-5) 09/18/22 20:05 Absolute Neutrophils 2.4 10^3/cmm (1.4-6.5) 09/18/22 20:05 Segmented Neutrophils 44 % 09/18/22 20:05 Abs Segm Neuts (Man) 2.3 10/cmm (1.6-7.1) 09/18/22 20:05 Band Neutrophils 1.0 % 09/18/22 20:05 Abs Band Neuts (Man) 0.1 10^3/cmm (0.0-1.2) 09/18/22 20:05 Absolute Lymphocytes 1.9 10^3/cmm (1.2-3.4) 09/18/22 20:05 Lymphocytes (Manual) 32 % 09/18/22 20:05 Monocytes (Manual) 11.0 % 09/18/22 20:05 Absolute Monocytes 0.6 10^3/cmm (0.1-0.6) 09/18/22 20:05 Eosinophils (Manual) 0 % 09/18/22 20:05 Absolute Eosinophils 0.0 10^3/cmm (0.0-0.7) 09/18/22 20:05 Basophils (Manual) 0.0 % 09/18/22 20:05 Absolute Basophils 0.0 10^3/cmm (0.0-0.2) 09/18/22 20:05 Metamyelocytes 5.0 % 09/18/22 20:05 Myelocytes 4.0 % 09/18/22 20:05 Toxic Granulation 1+ H 09/18/22 20:05 Platelet Estimate Normal (Normal) 09/18/22 20:05 Hypochromasia 1+ H 09/18/22 20:05 Macrocytosis 1+ H 09/18/22 20:05 Ovalocytes 1+ H 09/18/22 20:05 PT 15.30 SECONDS (12.1-14.9) H 09/18/22 20:37 INR 1.17 (0.8-1.2) 09/18/22 20:37 D-Dimer Cancelled 09/18/22 20:05 Sodium 131 mmol/L (136-145) L 09/18/22 20:05 Potassium 4.5 mmol/L (3.5-5.1) 09/18/22 20:05 Chloride 96 mmol/L (98-107) L 09/18/22 20:05 Carbon Dioxide 21 mmol/L (22-29) L 09/18/22 20:05 Anion Gap 18.5 (5-19) 09/18/22 20:05 BUN 23 mg/dL (6-20) H 09/18/22 20:05 Creatinine 0.6 mg/dL (0.5-0.9) 09/18/22 20:05 GFR Calculation 105.0 mL/min (90-130) 09/18/22 20:05 Glucose 265 mg/dL (65-115) H 09/18/22 20:05 Calculated Osmolality 285 mOsm/kg (285-295) 09/18/22 20:05 Calcium 9.2 mg/dL (8.5-10.5) 09/18/22 20:05 Total Bilirubin 4.2 mg/dL (0.15-1.2) H 09/18/22 20:05 AST 39 U/L (0-32) H 09/18/22 20:05 ALT 22 U/L (0-33) 09/18/22 20:05 Alkaline Phosphatase 88 U/L (35-105) 09/18/22 20:05 Lactate Dehydrogenase 753 U/L (135-214) H 09/18/22 21:20 Troponin T Baseline 9 ng/L (0-10) 09/18/22 20:05 Troponin T 120 Minute 7.96 ng/L (0-10) 09/18/22 21:20 Delta Troponin T -1.04 ABS# (0-10) L 09/18/22 21:20 NT-Pro-B Natriuret Pep 1295 pg/mL (0-125) H 09/18/22 20:05 Total Protein 7.1 g/dL (6.6-8.7) 09/18/22 20:05 Albumin 3.7 g/dL (3.5-5.2) 09/18/22 20:05 Globulin 3.4 g/dL (1.3-4.6) 09/18/22 20:05 Blood Type A Positive 09/18/22 21:16 Rho(D) Type Positive 09/18/22 21:16 Antibody Screen Positive 09/18/22 21:16 Crossmatch See Detail 09/18/22 20:34 EKG Data EKG 1: I personally reviewed and interpreted this EKG as follows: EKG interpretation date: 09/18/22 EKG interpretation time: 20:13 Interpretation: sinus tach hr [address] or t wave abnormalities qrs 134 qtc 451 Critical Care Time Critical Care Time: Critical Care Time: Yes Total Critical Care Time: 40 Attestation: The high probability of a clinically significant, sudden or life threatening deterioration of the patient's heme/onc system(s) required my full and direct attention, intervention and personal management. The critical care time is as shown. This time is in addition to time spent performing any reported procedures but includes the following: [x] Data and vital sign review and interpretation [x] Patient assessment, examination and intervention [x] Documentation [x] Medication orders and management Discharge Plan Discharge Patient Disposition: Xfer Short-Term Hosp Clinical Impression: Hemolytic anemia Condition: Stable Prescriptions: No Action magnesium hydroxide [Milk of Magnesia] 400 mg/5 mL suspension 30 ml PO DAILY PRN (Reason: constipation) Qty: 355 3RF Rx Instructions: take after 3rd day of no BM Victoza 3-Arya 0.6 mg/0.1 mL (18 mg/3 mL) pen injector 1.8 mg SUBCUT Q24H 90 Days Qty: 27 3RF glimepiride [Amaryl] 4 mg tablet 4 mg PO DAILY Qty: 90 3RF (DME) Novofine Autocover 30 gauge x 1/3 needle See Rx Instructions .ROUTE .MEDSUPPLY Qty: 100 3RF Rx Instructions: As directed lisinopril 2.5 mg tablet 2.5 mg PO DAILY Qty: 90 3RF Vit D 1000iu See Rx Instructions .ROUTE .COMPLEX Qty: 90 3RF Dose Instruction: TAKE THREE CAPSULES BY MOUTH EVERY DAY Rx Instructions: TAKE THREE CAPSULES BY MOUTH EVERY DAY acetaminophen [Tylenol] 325 mg tablet 650 mg PO QID PRN (Reason: pain) Qty: 90 3RF Rx Instructions: or tempature greater than 100 degrees cetirizine 10 mg tablet 10 mg PO DAILY Qty: 30 3RF Januvia 100 mg tablet 100 mg PO DAILY Qty: 90 3RF multivitamin [One Daily Essential] Tablet See Rx Instructions .ROUTE .COMPLEX Qty: 30 3RF Dose Instruction: TAKE ONE TABLET BY MOUTH EVERY MORNING Rx Instructions: TAKE ONE TABLET BY MOUTH EVERY MORNING metformin 500 mg tablet See Rx Instructions .ROUTE .COMPLEX Qty: 60 3RF Dose Instruction: TAKE TWO TABLETS BY MOUTH EVERY DAY with largest meal of THE DAY Rx Instructions: TAKE TWO TABLETS BY MOUTH EVERY DAY with largest meal of THE DAY (DME) lancets [TRUEplus Lancets] 30 gauge misc See Rx Instructions .ROUTE .MEDSUPPLY Qty: 100 12RF Rx Instructions: test two times daily (DME) Truetest Test Strips Strip See Rx Instructions .ROUTE .MEDSUPPLY Qty: 100 12RF Rx Instructions: As directed- two times daily Farxiga 10 mg tablet 10 mg PO DAILY Qty: 90 1RF lovastatin 40 mg tablet 40 mg PO QPM Referrals: Cedric Padilla MD [Primary Care Provider] - Coding Level of Care Code ED Proof Technician Helper for Graciela Felix
[2022-09-18 20:18] LABS: Mean Corpuscular HGB Conc 33.1 g/dL (30.0-36.0); Mean Corpuscular Hemoglobin 31.4 pg (28.0-34.0); Mean Platelet Volume 9.7 fL (7.4-10.4); Platelet Count 137 10^3/cmm (130-400); Red Cell Distribution Width 17.2 % (12.1-15.1); White Blood Count 5.3 10^3/uL (4.0-10.0)
[2022-09-18 20:31] LABS: Hematocrit 13.3 % (37.0-47.0); Hemoglobin 4.4 g/dL (11.5-15.3); Slide Review Slide Review Perform
[2022-09-18 20:38] LABS: Troponin(5th) Baseline 9 ng/L (0-10)
[2022-09-18 20:44] LABS: Alanine Aminotransferase 22 U/L (0-33); Albumin Level 3.7 g/dL (3.5-5.2); Alkaline Phosphatase 88 U/L (35-105); Aspartate Amino Transferase 39 U/L (0-32); Blood Urea Nitrogen 23 mg/dL (6-20); Calcium 9.2 mg/dL (8.5-10.5); Carbon Dioxide 21 mmol/L (22-29); Globulin 3.4 g/dL (1.3-4.6); Glucose 265 mg/dL (65-115); NT Pro B Type Natriuretic Pept 1295 pg/mL (0-125); Total Bilirubin 4.2 mg/dL (0.15-1.2); Total Protein 7.1 g/dL (6.6-8.7)
[2022-09-18 20:45] LABS: Absolute Segmented Neutrophil 2.3 10/cmm (1.6-7.1); Band Neutrophils Absolute 0.1 10^3/cmm (0.0-1.2); Eosinophils 0 %; Lymphocytes 32 %; Lymphocytes Absolute 1.9 10^3/cmm (1.2-3.4); Monocytes Absolute 0.6 10^3/cmm (0.1-0.6); Segmented Neutrophils 44 %; Total Cells Counted 100 (0-100)
[2022-09-18 20:46] LABS: Absolute Neutrophil 2.4 10^3/cmm (1.4-6.5); Platelet Estimate Normal (Normal)
[2022-09-18 20:47] LABS: Hypochromasia 1+; Macrocytosis 1+
[2022-09-18 20:48] LABS: Toxic Granulation 1+
[2022-09-18 20:49] LABS: Ovalocytes 1+
[2022-09-18 21:03] LABS: Anion Gap 18.5 (5-19); Chloride 96 mmol/L (98-107); Osmolality Calculated 285 mOsm/kg (285-295); Potassium 4.5 mmol/L (3.5-5.1); Sodium 131 mmol/L (136-145)
[2022-09-18 21:19] VITALS: BP 116/56; PULSE 111; RESP 16; O2SAT 96
[2022-09-18 21:47] LABS: INR 1.17 (0.8-1.2)
[2022-09-18 21:52] LABS: Troponin 5 2HR 7.96 ng/L (0-10)
--- NOTE | 2022-09-18 21:54 | CTR_ITS ---
PROCEDURE INFORMATION: Exam: CTA Chest With Contrast Exam date and time: 09/18/2022 10:03 PM Age: 52 years old Clinical indication: Abdominal pain; Localized; Left upper quadrant (luq); Chest pressure; Patient HX: Luq pain, shob, low hemoglobin; Additional info: Sob/abd pain TECHNIQUE: Imaging protocol: Computed tomographic angiography of the chest with contrast. 3D rendering (Not supervised by radiologist): MIP and/or 3D reconstructed images were created by the technologist. Radiation optimization: All CT scans at this facility use at least one of these dose optimization techniques: automated exposure control; mA and/or kV adjustment per patient size (includes targeted exams where dose is matched to clinical indication); or iterative reconstruction. Contrast material: OMNI 350; Contrast volume: 100 ml; Contrast route: INTRAVENOUS (IV); REPORTING DATA: Count of CT and Cardiac NM exams in prior 12 months: This patient has received 0 known CTs and 0 known cardiac nuclear medicine studies in the 12 months prior to the current study. COMPARISON: CR (CHEST, ) 09/18/2022 8:16 PM RADIATION DOSE METRICS: Total DLP (mGy-cm): 295.7 FINDINGS: Pulmonary arteries: No pulmonary embolus or aortic dissection. Aorta: See Pulmonary arteries finding. Lungs: Unremarkable. No consolidation. No masses. Pleural spaces: Unremarkable. No pneumothorax. No pleural effusion. Heart: Unremarkable. No cardiomegaly. No pericardial effusion. Lymph nodes: Unremarkable. No enlarged lymph nodes. Bones/joints: Mild thoracic spondylosis. Soft tissues: Unremarkable. PROCEDURE INFORMATION: Exam: CT Abdomen And Pelvis With Contrast Exam date and time: 09/18/2022 10:03 PM Age: 52 years old Clinical indication: Abdominal pain; Localized; Left upper quadrant (luq); Chest pressure; Patient HX: Luq pain, shob, low hemoglobin; Additional info: Sob/abd pain TECHNIQUE: Imaging protocol: Computed tomography of the abdomen and pelvis with contrast. Radiation optimization: All CT scans at this facility use at least one of these dose optimization techniques: automated exposure control; mA and/or kV adjustment per patient size (includes targeted exams where dose is matched to clinical indication); or iterative reconstruction. Contrast material: OMNI 350; Contrast volume: 100 ml; Contrast route: INTRAVENOUS (IV); REPORTING DATA: Count of CT and Cardiac NM exams in prior 12 months: This patient has received 0 known CTs and 0 known cardiac nuclear medicine studies in the 12 months prior to the current study. COMPARISON: CR (CHEST, ) 09/18/2022 8:16 PM RADIATION DOSE METRICS: Total DLP (mGy-cm): 573.2 FINDINGS: Liver: Normal. No mass. Gallbladder and bile ducts: Normal. No calcified stones. No ductal dilation. Pancreas: Normal. No ductal dilation. Spleen: 16.9 x 15.2 cm moderate to large splenomegaly. Adrenal glands: Normal. No mass. Kidneys and ureters: Normal. No hydronephrosis. Stomach and bowel: Unremarkable. No obstruction. No mucosal thickening. Appendix: No evidence of appendicitis. Intraperitoneal space: Unremarkable. No free air. No significant fluid collection. Vasculature: 16 mm portal vein suggesting possible portal hypertension. Lymph nodes: Unremarkable. No enlarged lymph nodes. Urinary bladder: Unremarkable as visualized. Reproductive: Unremarkable as visualized. Bones/joints: Levoscoliosis. Moderate to severe multilevel spine degenerative changes including degenerative disc disease, spondylosis and facet degenerative changes. Soft tissues: Unremarkable. CT/CT angio chest w abd pel w con IMPRESSION: No pulmonary embolus or aortic dissection. IMPRESSION: 1. 16.9 x 15.2 cm moderate to large splenomegaly. 2. 16 mm portal vein suggesting possible portal hypertension.
[2022-09-18] MEDS: iohexol 350 mg/mL 500 mL Btl (per mL) IV (22:00)
[2022-09-18 22:09] LABS: Hemoglobin 4.2 g/dL (11.5-15.3)
[2022-09-18 22:20] LABS: Lactate Dehydrogenase 753 U/L (135-214)
[2022-09-18 23:16] VITALS: BP 99/53; PULSE 114; RESP 18; O2SAT 97
[2022-09-18 23:24] LABS: Troponin 5 2HR Delta -1.04 ABS# (0-10)
--- NOTE | 2022-09-18 23:28 | PC.NURSE ---
to bedside to administer blood transfusion. Margie Staley RN at bedside for verification.
[2022-09-18 23:35] VITALS: BP 98/41; PULSE 113; RESP 18; TEMP 36.9; O2SAT 100
[2022-09-18] MEDS: predniSONE 20 mg Tablet 70 MG PO (23:47)
--- NOTE | 2022-09-18 23:50 | ECG_ITS ---
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 Measurements Intervals [place] Rate: 109 P: 132 NH: 161 QRS: -27 QRSD: 133 T: -5 QT: 368 QTc: 497 Interpretive Statements SINUS TACHYCARDIA RIGHT BUNDLE BRANCH BLOCK [120+ ms QRS DURATION, UPRIGHT V1, 40+ ms S IN I/aVL/V4/V5/V6] POSSIBLE ANTERIOR MYOCARDIAL INFARCTION , OF INDETERMINATE AGE [30 ms Q WAVE IN V3/V4, OR R < 0.2 mV IN V4] Compared to ECG 09/18/2022 20:13:25 No significant changes Electronically Signed On 09-19-2022 23:47:20 CDT by Adrienne Cochran M.D. [id number]
[2022-09-18 23:52] VITALS: BP 103/57; PULSE 108; RESP 17; TEMP 36.9; O2SAT 98
[2022-09-19] VITALS: BP 100/55; PULSE 108; RESP 16; TEMP 36.9; O2SAT 98
[2022-09-19 00:15] VITALS: BP 98/61; PULSE 107; RESP 19; O2SAT 94
[2022-09-19 00:30] VITALS: BP 110/56; PULSE 106; RESP 17; O2SAT 100
[2022-09-19 00:37] LABS: LAB Peripheral Smear Sent for Review
== END 2022-09-19 01:49 | disposition short-term general hospital (02) ==
PROVIDERS: Emergency Provider Emergency Medicine; PCP Internal Medicine
DX: D58.9 Hereditary hemolytic anemia, unspecified (principal)
CPT/HCPCS: 36430; 71045; 71275; 74177; 80053; 80503; 83010; 83615; 83880; 84484; 85007; 85014; 85018; 85025; 85045; 85610; 86850; 86870; 86880; 86900; 86902; 86920; 93005; 99285; J7512; P9016; Q9967

== ENCOUNTER 2022-10-04 15:01 | Outpatient (CLI) | payer MEDICARE, MEDICAID, SELFPAY ==
--- NOTE | 2022-10-04 15:09 | MM_ITS ---
WS: [id number] VIEWS: MLO and CC views both breasts. 3D digital tomosynthesis is also included in this exam. Comparison made with prior exam of 09/02/2015, 09/05/2016, 09/12/2017, 02/07/2019, 03/13/2020, 09/17/2021.. Findings: There was no sign of mass, architectural distortion or suspicious calcification in either breast. Sc attered fibroglandular densities MM/[place] [id number] Impression: BI-RADS: 2-Benign FOLLOW-UP: 1 Year Follow-up This mammogram was also analyzed by the Computer Aided Detection System R2 Imag e Rock Breaker.
== END 2022-10-04 15:02 | disposition home or self-care (01) ==
PROVIDERS: PCP Internal Medicine; Visit Provider Internal Medicine
DX: Z12.31 Encounter for screening mammogram for malignant neoplasm of breast (principal)
CPT/HCPCS: 77063; 77067

== ENCOUNTER 2022-10-06 08:03 | Oncology outpatient (recurring) (ONCR) | payer MEDICARE, MEDICAID, SELFPAY ==
[2022-09-27 09:52] LABS: Reticulocyte % 6.3 % (0.5-2.0)
[2022-09-27 09:53] LABS: Hematocrit 21.5 % (37.0-47.0); Hemoglobin 6.7 g/dL (11.5-15.3); Mean Corpuscular HGB Conc 31.2 g/dL (30.0-36.0); Mean Corpuscular Hemoglobin 31.6 pg (28.0-34.0); Mean Corpuscular Volume 101.4 fl (81-99); Mean Platelet Volume 9.6 fL (7.4-10.4); Platelet Count 118 10^3/cmm (130-400); Red Blood Count 2.12 10^6/uL (4.1-5.3); Red Cell Distribution Width 24.3 % (12.1-15.1); White Blood Count 5.3 10^3/uL (4.0-10.0)
[2022-09-27 10:05] LABS: Alanine Aminotransferase 20 U/L (0-33); Albumin Level 3.3 g/dL (3.5-5.2); Alkaline Phosphatase 66 U/L (35-105); Anion Gap 13.1 (5-19); Aspartate Amino Transferase 37 U/L (0-32); Blood Urea Nitrogen 23 mg/dL (6-20); Calcium 8.6 mg/dL (8.5-10.5); Carbon Dioxide 24 mmol/L (22-29); Chloride 104 mmol/L (98-107); Globulin 3.9 g/dL (1.3-4.6); Glomerular Filtration Rate 87.9 mL/min (90-130); Glucose 179 mg/dL (65-115); Lactate Dehydrogenase 704 U/L (135-214); Osmolality Calculated 292 mOsm/kg (285-295); Potassium 4.1 mmol/L (3.5-5.1); Sodium 137 mmol/L (136-145); Total Bilirubin 1.9 mg/dL (0.15-1.2); Total Protein 7.2 g/dL (6.6-8.7)
[2022-09-27 10:11] LABS: LAB Peripheral Smear Sent for Review
[2022-09-27 10:51] LABS: Add RBC Morph No; Slide Review Slide Review Perform
[2022-09-27 10:54] LABS: Absolute Eosinophils 0.1 10^3/cmm (0.0-0.7); Absolute Neutrophil 3.3 10^3/cmm (1.4-6.5); Absolute Segmented Neutrophil 3.1 10/cmm (1.6-7.1); Band Neutrophils Absolute 0.2 10^3/cmm (0.0-1.2); Eosinophils 3 %; Lymphocytes 19 %; Lymphocytes Absolute 1.2 10^3/cmm (1.2-3.4); Monocytes Absolute 0.2 10^3/cmm (0.1-0.6); Platelet Estimate Decreased (Normal); Polychromasia Trace; Segmented Neutrophils 59 %; Total Cells Counted 100 (0-100)
[2022-09-27 10:55] LABS: Macrocytosis 1+; Microcytosis 1+
[2022-10-03 16:39] LABS: Cold Hemagglutinins 1:40 Titer (None Detected)
[2022-10-06] VITALS (16 sets, daily range): BP systolic 91–120; BP diastolic 59–71; PULSE 70–96; RESP 16–46; TEMP 35.8–36.6; O2SAT 96–99; BMI 30.8
[2022-10-06 09:00] LABS: Reticulocyte % 8.8 % (0.5-2.0)
[2022-10-06 09:02] LABS: Basophils % 0.2 %; Hemoglobin 6.7 g/dL (11.5-15.3); Lymphocytes # 1.1 10^3/uL (0.8-4.8); Lymphocytes % 26.7 %; Mean Corpuscular HGB Conc 29.1 g/dL (30.0-36.0); Mean Corpuscular Hemoglobin 31.3 pg (28.0-34.0); Mean Corpuscular Volume 107.5 fl (81-99); Mean Platelet Volume 10.3 fL (7.4-10.4); Monocytes # 0.3 10^3/uL (0.2-0.9); Monocytes % 6.4 %; Neutrophils # 2.45 10^3/uL (1.8-7.7); Neutrophils % 60.8 %; Nucleated Red Blood Cells # 0.1 /100WBC; Nucleated Red Blood Cells % 1.2 %; Platelet Count 105 10^3/cmm (130-400); Red Blood Count 2.14 10^6/uL (4.1-5.3); Red Cell Distribution Width 25.6 % (12.1-15.1)
[2022-10-06 09:44] LABS: Slide Review Slide Review Perform
[2022-10-06 10:10] LABS: Alanine Aminotransferase 15 U/L (0-33); Albumin Level 3.2 g/dL (3.5-5.2); Alkaline Phosphatase 43 U/L (35-105); Aspartate Amino Transferase 27 U/L (0-32); Blood Urea Nitrogen 17 mg/dL (6-20); Calcium 8.5 mg/dL (8.5-10.5); Carbon Dioxide 26 mmol/L (22-29); Chloride 105 mmol/L (98-107); Globulin 4.3 g/dL (1.3-4.6); Glomerular Filtration Rate 129.6 mL/min (90-130); Glucose 163 mg/dL (65-115); Osmolality Calculated 295 mOsm/kg (285-295); Sodium 140 mmol/L (136-145); Total Bilirubin 1.7 mg/dL (0.15-1.2); Total Protein 7.5 g/dL (6.6-8.7)
[2022-10-06 10:12] LABS: Anion Gap 13.1 (5-19); Lactate Dehydrogenase 508 U/L (135-214); Potassium 4.1 mmol/L (3.5-5.1)
[2022-10-06] MEDS: sodium chloride 0.9% 250 ML 75 ML IV (10:40)
[2022-10-06] MEDS: acetaminophen 325 mg Tablet 650 MG PO (10:44)
[2022-10-06] MEDS: diphenhydrAMINE 50 mg/mL SDV 1mL 25 MG IVP (10:46)
[2022-10-06 11:42] LABS: Hepatitis A Antibody IgM Non-Reactive (Nonreactive); Hepatitis B Core AB, Total Non-Reactive (Nonreactive); Hepatitis B Surface AB 17.4 (11.5-1000); Hepatitis B Surface Antigen Non-Reactive (Nonreactive); Hepatitis C Virus Antibody Non-Reactive (Nonreactive)
[2022-10-06] MEDS: insulin lispro 100 unit/1 mL SUBCUT (12:05)
--- NOTE | 2022-10-06 17:08 | PC.NURSE ---
At 1420 this nurse realized the rate was set wrong on the pump. At this time it was set to the correct rate and starting at 50 mg/mL.
[2022-10-06] MEDS: insulin lispro 100 unit/1 mL 7 UNIT SUBCUT (17:14)
== END 2022-10-09 23:59 | disposition home or self-care (01) ==
PROVIDERS: PCP Internal Medicine; Visit Provider Internal Medicine Medical Oncology
DX: D59.10 Autoimmune hemolytic anemia, unspecified (principal)
CPT/HCPCS: 36415; 80053; 80503; 83010; 83615; 85007; 85025; 85045; 86157; 86705; 86706; 86709; 86803; 86850; 86870; 86880; 86900; 87340; 96372; 96375; 96413; 99205; J1200; J1815; J7040; J7050; Q5115

== ENCOUNTER 2022-10-20 08:08 | Oncology outpatient (recurring) (ONCR) | payer MEDICARE, MEDICAID, SELFPAY ==
[2022-10-13 08:49] LABS: Reticulocyte % 6.3 % (0.5-2.0)
[2022-10-13 08:51] LABS: Hematocrit 31.5 % (37.0-47.0); Hemoglobin 9.4 g/dL (11.5-15.3); Lymphocytes % 31.2 %; Mean Corpuscular HGB Conc 29.8 g/dL (30.0-36.0); Mean Corpuscular Volume 107.1 fl (81-99); Mean Platelet Volume 9.5 fL (7.4-10.4); Monocytes # 0.3 10^3/uL (0.2-0.9); Monocytes % 8.4 %; Neutrophils # 1.97 10^3/uL (1.8-7.7); Neutrophils % 59.2 %; Nucleated Red Blood Cells % 0 %; Platelet Count 141 10^3/cmm (130-400); Red Blood Count 2.94 10^6/uL (4.1-5.3); Red Cell Distribution Width 22.2 % (12.1-15.1); White Blood Count 3.3 10^3/uL (4.0-10.0)
[2022-10-13 09:08] LABS: Alanine Aminotransferase 19 U/L (0-33); Albumin Level 3.3 g/dL (3.5-5.2); Alkaline Phosphatase 39 U/L (35-105); Anion Gap 15.8 (5-19); Aspartate Amino Transferase 26 U/L (0-32); Blood Urea Nitrogen 14 mg/dL (6-20); Calcium 8.7 mg/dL (8.5-10.5); Carbon Dioxide 26 mmol/L (22-29); Chloride 103 mmol/L (98-107); Globulin 4.3 g/dL (1.3-4.6); Glomerular Filtration Rate 129.6 mL/min (90-130); Glucose 132 mg/dL (65-115); Lactate Dehydrogenase 414 U/L (135-214); Osmolality Calculated 294 mOsm/kg (285-295); Potassium 3.8 mmol/L (3.5-5.1); Sodium 141 mmol/L (136-145); Total Bilirubin 1.5 mg/dL (0.15-1.2); Total Protein 7.6 g/dL (6.6-8.7)
[2022-10-13] MEDS: sodium chloride 0.9% 250 ML 75 ML IV (10:31)
[2022-10-13] MEDS: diphenhydrAMINE 50 mg/mL SDV 1mL 25 MG IVP (10:31)
[2022-10-13] MEDS: acetaminophen 325 mg Tablet 650 MG PO (10:31)
[2022-10-13 10:50] VITALS: BP 110/69; PULSE 66; RESP 16; TEMP 36.6; O2SAT 99
[2022-10-13 11:20] VITALS: BP 100/62; PULSE 67; RESP 16; TEMP 36.4; O2SAT 99
[2022-10-13 11:50] VITALS: BP 100/63; PULSE 67; RESP 16; TEMP 36.1; O2SAT 99
[2022-10-13 12:20] VITALS: BP 95/55; PULSE 68; RESP 18; TEMP 36.5; O2SAT 99
[2022-10-13 15:53] VITALS: BP 100/66; PULSE 67; RESP 16; TEMP 36.7; O2SAT 99
[2022-10-20 08:38] LABS: Reticulocyte % 5.1 % (0.5-2.0)
[2022-10-20 08:39] LABS: Basophils % 0.2 %; Hematocrit 34.1 % (37.0-47.0); Lymphocytes # 1.6 10^3/uL (0.8-4.8); Lymphocytes % 38.5 %; Mean Corpuscular HGB Conc 29.3 g/dL (30.0-36.0); Mean Corpuscular Hemoglobin 31.3 pg (28.0-34.0); Mean Corpuscular Volume 106.9 fl (81-99); Mean Platelet Volume 9.2 fL (7.4-10.4); Monocytes # 0.5 10^3/uL (0.2-0.9); Monocytes % 11.9 %; Neutrophils # 1.97 10^3/uL (1.8-7.7); Neutrophils % 47.7 %; Nucleated Red Blood Cells % 0 %; Platelet Count 149 10^3/cmm (130-400); Red Blood Count 3.19 10^6/uL (4.1-5.3); Red Cell Distribution Width 19.2 % (12.1-15.1); White Blood Count 4.1 10^3/uL (4.0-10.0)
[2022-10-20 09:38] LABS: Alanine Aminotransferase 21 U/L (0-33); Albumin Level 3.6 g/dL (3.5-5.2); Alkaline Phosphatase 34 U/L (35-105); Blood Urea Nitrogen 16 mg/dL (6-20); Calcium 8.8 mg/dL (8.5-10.5); Carbon Dioxide 25 mmol/L (22-29); Chloride 101 mmol/L (98-107); Globulin 4.1 g/dL (1.3-4.6); Glomerular Filtration Rate 167.6 mL/min (90-130); Glucose 162 mg/dL (65-115); Osmolality Calculated 295 mOsm/kg (285-295); Sodium 140 mmol/L (136-145); Total Bilirubin 1.9 mg/dL (0.15-1.2); Total Protein 7.7 g/dL (6.6-8.7)
[2022-10-20 09:43] LABS: Anion Gap 17.7 (5-19); Aspartate Amino Transferase 49 U/L (0-32); Lactate Dehydrogenase 546 U/L (135-214); Potassium 3.7 mmol/L (3.5-5.1)
[2022-10-20] MEDS: acetaminophen 325 mg Tablet 650 MG PO (10:44)
[2022-10-20] MEDS: sodium chloride 0.9% 1,000 ML 999 ML IV (10:44)
[2022-10-20] MEDS: diphenhydrAMINE 50 mg/mL SDV 1mL 25 MG IVP (10:45)
[2022-10-20 11:35] VITALS: BP 107/70; PULSE 50; RESP 16; TEMP 36.6; O2SAT 98
[2022-10-20 12:05] VITALS: BP 102/60; PULSE 50; RESP 16; TEMP 36.6; O2SAT 97
[2022-10-20 12:35] VITALS: BP 107/70; PULSE 52; RESP 16; TEMP 36.6; O2SAT 99
[2022-10-20 13:05] VITALS: BP 107/70; PULSE 52; RESP 16; TEMP 36.5; O2SAT 99
[2022-10-20 14:00] VITALS: BP 100/63; PULSE 16; RESP 72; TEMP 36.8; O2SAT 97
== END 2022-10-20 23:59 | disposition home or self-care (01) ==
PROVIDERS: PCP Internal Medicine; Visit Provider Internal Medicine Medical Oncology
DX: Z51.12 Encounter for antineoplastic immunotherapy (principal); D59.11 Warm autoimmune hemolytic anemia; R60.0 Localized edema; M79.89 Other specified soft tissue disorders; Z79.52 Long term (current) use of systemic steroids; Z79.899 Other long term (current) drug therapy
CPT/HCPCS: 80053; 83010; 83615; 85025; 85045; 93971; 96375; 96413; 96415; 99214; J1200; J7030; J7040; J7050; Q5115

== ENCOUNTER 2022-10-20 10:53 | Outpatient (CLI) | payer MEDICARE, MEDICAID, SELFPAY ==
--- NOTE | 2022-10-20 11:01 | USCV_ITS ---
Luma Knapp Age: 52 Gender: F : 1970 Exam Date: 10/20/2022 11:10 Ordering Phys: Frida Brewster APRN Technologist: ELIE Exam Location: [facility] [place] Indication: LE Swelling HISTORY: Lower extremity swelling. PROCEDURES: Venous duplex imaging was performed in only the right lower extremity. The following venous structures were evaluated: common femoral vein, profunda vein, proximal portion of the greater saphenous vein, superficial femoral vein, and the popliteal vein. In addition, the posterior tibial and peroneal trunk were evaluated. Serial compression, augmentation maneuvers, and spectral Doppler flow evaluation were performed. FINDINGS: No evidence of DVT seen in any vessel visualized at this time. CONCLUSIONS No evidence of right lower extremity DVT. Sravan Valenzuela MD (Electronically Signed) Final Date: 20 Oct 2022 13:07 S
== END 2022-10-20 10:54 | disposition home or self-care (01) ==
PROVIDERS: PCP Internal Medicine; Visit Provider Nurse Practitioner Family
DX: M79.89 Other specified soft tissue disorders (principal)
CPT/HCPCS: 93971

== ENCOUNTER 2022-10-27 08:05 | Oncology outpatient (recurring) (ONCR) | payer MEDICARE, MEDICAID, SELFPAY ==
[2022-10-27 09:15] LABS: Basophils % 0.3 %; Hematocrit 29.5 % (37.0-47.0); Hemoglobin 8.7 g/dL (11.5-15.3); Lymphocytes # 0.8 10^3/uL (0.8-4.8); Lymphocytes % 23.2 %; Mean Corpuscular HGB Conc 29.5 g/dL (30.0-36.0); Mean Corpuscular Hemoglobin 31.1 pg (28.0-34.0); Mean Corpuscular Volume 105.4 fl (81-99); Monocytes # 0.2 10^3/uL (0.2-0.9); Monocytes % 6.8 %; Neutrophils # 2.44 10^3/uL (1.8-7.7); Neutrophils % 69.1 %; Nucleated Red Blood Cells % 0 %; Platelet Count 140 10^3/cmm (130-400); Red Cell Distribution Width 17.5 % (12.1-15.1); Reticulocyte % 4.6 % (0.5-2.0); White Blood Count 3.5 10^3/uL (4.0-10.0)
[2022-10-27 09:31] LABS: Alanine Aminotransferase 26 U/L (0-33); Albumin Level 3.2 g/dL (3.5-5.2); Alkaline Phosphatase 49 U/L (35-105); Anion Gap 13.3 (5-19); Aspartate Amino Transferase 22 U/L (0-32); Blood Urea Nitrogen 11 mg/dL (6-20); Calcium 8.6 mg/dL (8.5-10.5); Carbon Dioxide 27 mmol/L (22-29); Chloride 103 mmol/L (98-107); Globulin 3.2 g/dL (1.3-4.6); Glomerular Filtration Rate 129.6 mL/min (90-130); Glucose 229 mg/dL (65-115); Lactate Dehydrogenase 321 U/L (135-214); Osmolality Calculated 295 mOsm/kg (285-295); Potassium 4.3 mmol/L (3.5-5.1); Sodium 139 mmol/L (136-145); Total Bilirubin 1.5 mg/dL (0.15-1.2); Total Protein 6.4 g/dL (6.6-8.7)
[2022-10-27] MEDS: sodium chloride 0.9% 250 ML 100 ML IV (10:53)
[2022-10-27] MEDS: diphenhydrAMINE 50 mg/mL SDV 1mL 25 MG IVP (10:53)
[2022-10-27] MEDS: acetaminophen 325 mg Tablet 650 MG PO (10:53)
[2022-10-27 11:20] VITALS: BP 98/68; PULSE 65; TEMP 36.2; O2SAT 99
[2022-10-27 12:20] VITALS: BP 98/66; PULSE 78; TEMP 35.9; O2SAT 98
[2022-10-27 12:50] VITALS: BP 94/56; PULSE 83; TEMP 35.9; O2SAT 97
[2022-10-27 13:50] VITALS: BP 103/61; PULSE 87; TEMP 36.3; O2SAT 96
== END 2022-11-09 23:59 | disposition home or self-care (01) ==
PROVIDERS: PCP Internal Medicine; Visit Provider Internal Medicine Medical Oncology
DX: Z51.12 Encounter for antineoplastic immunotherapy (principal); D59.11 Warm autoimmune hemolytic anemia; Z79.52 Long term (current) use of systemic steroids; Z79.899 Other long term (current) drug therapy; R79.89 Other specified abnormal findings of blood chemistry
CPT/HCPCS: 80053; 83010; 83615; 85025; 85045; 96375; 96413; 96415; 99214; J1200; J7040; J7050; Q5115

== ENCOUNTER 2022-11-10 11:38 | Outpatient (CLI) | payer MEDICARE, MEDICAID, SELFPAY ==
--- NOTE | 2022-11-10 11:49 | MRR_ITS ---
PROCEDURE INFORMATION: Exam: MR Left Lower Extremity Joint Without and With Contrast, Knee Exam date and time: 11/10/2022 12:16 PM Age: 52 years old Clinical indication: Other: Mass; Additional info: Mass of the knee, left TECHNIQUE: Imaging protocol: Magnetic resonance imaging of the left lower extremity joint without and with contrast. Exam focused on the knee. Contrast material: MULTIHANCE; Contrast volume: 15 ml; Contrast route: INTRAVENOUS (IV); COMPARISON: No relevant prior studies available. FINDINGS: Bones/joints: Moderate thinning of the articular cartilage of the lateral patellar facet is noted. Small joint effusion. There is borderline lateral patellar tilt. Mild distal femoral, proximal tibial an patellar osteophyte formation is noted. There is a somewhat prominent distribution of what appears to represent hematopoietic marrow. Evaluation of the marrow is somewhat limited without T1 non fat saturation sequences. An inferiorly projecting osseous excrescence is identified arising from the medial aspect of the proximal tibial metaphysis on series 4, image 14 measuring approximately 2.8 cm superior to inferior by 1.4 cm medial to lateral and up to 1.6 cm anterior to posterior. No definite cartilage cap is noted associated with this lesion. Fat pads of knee: There is mild edema in Hoffa's fat pad between the proximal patellar tendon and the lateral femoral condyle. Periarticular cysts: Small popliteal cyst. Bursae: Mild abnormal increased fluid in the deep infrapatellar bursa. Medial meniscus: Unremarkable. No tear. Lateral meniscus: Unremarkable. No tear. Anterior cruciate ligament: Unremarkable. No tear. Posterior cruciate ligament: Unremarkable. No tear. Medial capsule and supporting structures: Unremarkable. Lateral capsule and supporting structures: Unremarkable. No tear. Extensor mechanism of knee: Unremarkable. No tear. Soft tissues: A skin marker overlies the medial aspect of the proximal tibial metaphysis. MR/MR knee LT wo/w con [id number] IMPRESSION: 1. In the region of clinical concern/skin marker overlying the medial aspect of the proximal tibial metaphysis, and inferiorly projecting benign-appearing osseous excrescence is identified compatible with an osteochondroma without aggressive features. 2. Primary osteoarthritic changes. 3. Mild edema of Hoffa's fat pad between the proximal patellar tendon and lateral femoral condyle can be associated with patellar tendon-lateral femoral condyle friction syndrome. 4. Small popliteal cyst. 5. Small joint effusion. 6. Mild deep infrapatellar bursitis. 7. Somewhat prominent distribution of what likely represents hematopoietic marrow for patient of this age which can be associated with benign etiologies such as anemia. A neoplastic etiology is a less likely consideration. Evaluation of the marrow is limited without T1 non fat saturation sequences.
[2022-11-10] MEDS: gadobenate dimeglumine 20 mL vial IV (12:47)
== END 2022-11-10 11:39 | disposition home or self-care (01) ==
LOC: RAD 11:43
PROVIDERS: PCP Internal Medicine; Visit Provider Internal Medicine
DX: R22.42 Localized swelling, mass and lump, left lower limb (principal); M89.9 Disorder of bone, unspecified; M17.12 Unilateral primary osteoarthritis, left knee; R60.0 Localized edema; M71.22 Synovial cyst of popliteal space [Baker], left knee; M25.462 Effusion, left knee; M70.52 Other bursitis of knee, left knee
CPT/HCPCS: 73723; A9577

== ENCOUNTER → 2022-12-01 13:49 | Outpatient (BNVA) | payer MEDICARE, MEDICAID, SELFPAY | PROVIDERS: PCP Internal Medicine; Visit Provider Nurse Practitioner Family | DX: L82.1 Other seborrheic keratosis (principal); S80.912A Unspecified superficial injury of left knee, initial encounter; W19.XXXA Unspecified fall, initial encounter; L81.4 Other melanin hyperpigmentation; D22.5 Melanocytic nevi of trunk; Z71.89 Other specified counseling; L85.3 Xerosis cutis | CPT/HCPCS: 17110; 99213 ==

== ENCOUNTER 2022-12-26 11:50 | Oncology outpatient (recurring) (ONCR) | payer MEDICARE, MEDICAID, SELFPAY ==
[2022-12-26 11:55] VITALS: BP 110/70; PULSE 83; RESP 18; TEMP 36.3; O2SAT 96
[2022-12-26 12:08] LABS: Eosinophils # 0.2 10^3/uL (0.0-0.8); Eosinophils % 3.7 %; Hematocrit 43.3 % (37.0-47.0); Hemoglobin 13.5 g/dL (11.5-15.3); Lymphocytes # 0.5 10^3/uL (0.8-4.8); Lymphocytes % 11.5 %; Mean Corpuscular HGB Conc 31.2 g/dL (30.0-36.0); Mean Corpuscular Hemoglobin 28.7 pg (28.0-34.0); Mean Corpuscular Volume 92.1 fl (81-99); Mean Platelet Volume 9.5 fL (7.4-10.4); Monocytes # 0.1 10^3/uL (0.2-0.9); Monocytes % 2.8 %; Neutrophils # 3.46 10^3/uL (1.8-7.7); Neutrophils % 81.1 %; Nucleated Red Blood Cells % 0 %; Platelet Count 153 10^3/cmm (130-400); Red Cell Distribution Width 13.8 % (12.1-15.1); White Blood Count 4.3 10^3/uL (4.0-10.0)
[2022-12-26 12:28] LABS: Alanine Aminotransferase 26 U/L (0-33); Albumin Level 3.7 g/dL (3.5-5.2); Alkaline Phosphatase 54 U/L (35-105); Anion Gap 12.8 (5-19); Aspartate Amino Transferase 19 U/L (0-32); Blood Urea Nitrogen 12 mg/dL (6-20); Carbon Dioxide 27 mmol/L (22-29); Chloride 102 mmol/L (98-107); Globulin 2.1 g/dL (1.3-4.6); Glomerular Filtration Rate 129.6 mL/min (90-130); Glucose 139 mg/dL (65-115); Lactate Dehydrogenase 315 U/L (135-214); Osmolality Calculated 288 mOsm/kg (285-295); Potassium 3.8 mmol/L (3.5-5.1); Sodium 138 mmol/L (136-145); Total Protein 5.8 g/dL (6.6-8.7)
== END 2023-01-09 23:59 | disposition home or self-care (01) ==
PROVIDERS: PCP Internal Medicine; Visit Provider Internal Medicine Medical Oncology
DX: D59.11 Warm autoimmune hemolytic anemia (principal); R74.02 Elevation of levels of lactic acid dehydrogenase [LDH]; Z79.52 Long term (current) use of systemic steroids; Z79.899 Other long term (current) drug therapy
CPT/HCPCS: 36415; 80053; 83010; 83615; 85025; 99214

== ENCOUNTER 2023-03-03 20:18 | Emergency (ER) | payer MEDICARE, MEDICAID, SELFPAY ==
[2023-03-03 20:20] VITALS: BP 125/75; PULSE 83; RESP 18; TEMP 37.1; O2SAT 98; BMI 29.2
[2023-03-03 20:56] LABS: Glucose Point of Care 335 mg/dL (70-110)
[2023-03-03 21:00] VITALS: BP 116/73; PULSE 81; O2SAT 98
[2023-03-03 21:30] VITALS: BP 108/68; PULSE 86; O2SAT 96
[2023-03-03] MEDS: sodium chloride 0.9% 1,000 ML 999 ML IV (21:42)
[2023-03-03] MEDS: insulin glargine 100 units/1 mL 10 UNIT SUBCUT (21:45)
[2023-03-03] MEDS: insulin regular-human 100 units/1 mL 10 UNIT IVP (21:49)
[2023-03-03 22:00] VITALS: BP 118/77; PULSE 90; O2SAT 96
[2023-03-03 22:04] LABS: Anion Gap 13.9 (5-19); Blood Urea Nitrogen 13 mg/dL (6-20); Calcium 9.2 mg/dL (8.5-10.5); Carbon Dioxide 30 mmol/L (22-29); Chloride 100 mmol/L (98-107); Glomerular Filtration Rate 87.9 mL/min (90-130); Glucose 303 mg/dL (65-115); Osmolality Calculated 301 mOsm/kg (285-295); Potassium 3.9 mmol/L (3.5-5.1); Sodium 140 mmol/L (136-145)
--- NOTE | 2023-03-03 22:17 | W.ED.RECABL ---
HPI - Recheck/Abnormal Lab/Rx General: Chief Complaint: Recheck/Abnormal Lab/Rx Stated Complaint: HIGH BLOOD SUGAR Time Seen by Provider: 03/03/23 20:24 History of Present Illness: 52-year-old female presents the emergency department for high blood sugar. Shortly after arrival, staff found approximately 15 candy wrappers in her room. They had a phone homecoming event at her residence and were handing out candy. Evidently she had the candy and then ate all of it at once. Additionally, she has recently been on prednisone. The workers do not know why she is on prednisone but are aware that it can raise her blood sugar. Patient is completely asymptomatic. Her blood sugar at noon was 527 and then it was 576 at 7 PM. On arrival it is 335. She is currently due for units of Basaglar. She already took 35 units of Basaglar in the morning. She also takes Victoza, metformin, sliding scale lispro, and Farxiga Review of Systems General: Reports: 10 or more systems reviewed and unremarkable except in HPI and below PFSH ED PFSH: Medical History Autoimmune hemolytic anemia Dyslipidemia NLD (necrobiosis lipoidica diabeticorum) Type 2 diabetes mellitus Surgical History H/O dilation and curettage Family History Father CAD (coronary artery disease) Family/Other Cancer Great great grandfather - Stomach cancer Mother Diabetes Denies family history of Clotting disorder Dementia Hyperlipidemia Psychiatric illness Chronic kidney disease (CKD) Suicide Anesthesia complication Bleeding disorder Lung disease Hypertension Stroke Social History Smoking and tobacco status: never smoked Alcohol intake: never Adopted: No Current gender identity: Female Physical Exam Const: COMMON NORMALS: alert and well nourished EXAM LIMITATIONS: no altered mental status HENMT: COMMON NORMALS: atraumatic and external ears normal HEAD & SCALP: atraumatic EXTERNAL EAR: Yes external ears normal MOUTH: no muffled voice Eye: COMMON NORMALS: EOMs intact bilaterally, conjunctivae normal and no scleral icterus CONJUNCTIVA: Yes conjunctivae normal Neck/C-Spine: COMMON NORMALS: no JVD GENERAL: Yes normal visual inspection and Yes trachea midline Resp: COMMON NORMALS: normal respiratory effort, No use of accessory muscles and clear to auscultation bilaterally AUSCULTATION: clear to auscultation bilaterally Cardio: COMMON NORMALS: no JVD, regular rate and regular rhythm RATE: regular rate RHYTHM: regular rhythm GI: COMMON NORMALS: Soft to palpation and non-tender PALPATION: Yes Soft to palpation and No Guarding due to palpation present (GI) Extremity: COMMON NORMALS: normal to inspection Neuro: COMMON NORMALS: moves all extremities, no focal motor deficits and no sensory deficits noted SENSORIUM/ORIENTATION: Yes alert SPEECH: speech normal Skin: COMMON NORMALS: no rashes or lesions noted, turgor normal and no jaundice GENERAL SKIN EXAM: no rashes or lesions noted and turgor normal Course Vital Signs: Vital signs: Vital Signs Temperature 98.7 F 03/03/23 20:20 Pulse Rate 83 03/03/23 20:20 Respiratory Rate 18 03/03/23 20:20 Blood Pressure 125/75 03/03/23 20:20 Pulse Oximetry 98 03/03/23 20:20 Oxygen Delivery Me thod Room Air 03/03/23 20:20 MDM - Recheck/Abnormal Lab/Rx Medical Decision Making Patient presents with asymptomatic hyperglycemia. Current contributing factors include prednisone usage and over consumption of candy today after a homecoming parade at her facility. On arrival her blood sugar was 335. We took her blood and by the time we were done with that it was 305. Were going to give her a liter of fluid, 10 of regular insulin, 10 of glargine. Blood work shows normal anion gap and her bicarb is actually 30. No DKA. Patient can be discharged in 2 serial blood sugars at home. She has a sliding scale insulin order already. I have asked the workers to query her physician about the prednisone and whether the benefits outweigh the risks of hyperglycemia. Lab Data 03/03/23 21:41 Laboratory Results Sodium 140 mmol/L (136-145) 03/03/23 21:41 Potassium 3.9 mmol/L (3.5-5.1) 03/03/23 21:41 Chloride 100 mmol/L (98-107) 03/03/23 21:41 Carbon Dioxide 30 mmol/L (22-29) H 03/03/23 21:41 Anion Gap 13.9 (5-19) 03/03/23 21:41 BUN 13 mg/dL (6-20) 03/03/23 21:41 Creatinine 0.7 mg/dL (0.5-0.9) 03/03/23 21:41 GFR Calculation 87.9 mL/min (90-130) L 03/03/23 21:41 Glucose 303 mg/dL (65-115) H 03/03/23 21:41 POC Glucose 335 mg/dL (70-110) H 03/03/23 20:51 Calculated Osmolality 301 mOsm/kg (285-295) H 03/03/23 21:41 Calcium 9.2 mg/dL (8.5-10.5) 03/03/23 21:41 No radiology studies performed this visit Discharge Plan Discharge Patient Disposition: Home Clinical Impression: Acute hyperglycemia Condition: Stable Prescriptions: No Action cholecalciferol (vitamin D3) 25 mcg (1,000 unit) capsule 25 mcg PO DAILY insulin lispro 100 unit/mL insulin pen See Rx Instructions SUBCUT TID Rx Instructions: 0 to 7 units sliding scale subcutaneously three times daily; Sliding scale insulin glargine 100 unit/mL (3 mL) insulin pen 20 unit SUBCUT DAILY furosemide [Lasix] 20 mg tablet 20 mg PO DAILY magnesium hydroxide [Milk of Magnesia] 400 mg/5 mL suspension 30 ml PO DAILY PRN (Reason: constipation) Qty: 355 3RF Rx Instructions: take after 3rd day of no BM Victoza 3-Arya 0.6 mg/0.1 mL (18 mg/3 mL) pen injector 1.8 mg SUBCUT Q24H 90 Days Qty: 27 3RF (DME) Novofine Autocover 30 gauge x 1/3 needle See Rx Instructions .ROUTE .MEDSUPPLY Qty: 100 3RF Rx Instructions: As directed acetaminophen [Tylenol] 325 mg tablet 650 mg PO QID PRN (Reason: pain) Qty: 90 3RF Rx Instructions: or tempature greater than 100 degrees cetirizine 10 mg tablet 10 mg PO DAILY Qty: 30 3RF multivitamin [One Daily Essential] Tablet See Rx Instructions .ROUTE .COMPLEX Qty: 30 3RF Dose Instruction: TAKE ONE TABLET BY MOUTH EVERY MORNING Rx Instructions: TAKE ONE TABLET BY MOUTH EVERY MORNING metformin 500 mg tablet See Rx Instructions .ROUTE .COMPLEX Qty: 60 3RF Dose Instruction: TAKE TWO TABLETS BY MOUTH EVERY DAY with largest meal of THE DAY Rx Instructions: TAKE TWO TABLETS BY MOUTH EVERY DAY with largest meal of THE DAY (DME) lancets [TRUEplus Lancets] 30 gauge misc See Rx Instructions .ROUTE .MEDSUPPLY Qty: 100 12RF Rx Instructions: test two times daily (DME) Truetest Test Strips Strip See Rx Instructions .ROUTE .MEDSUPPLY Qty: 100 12RF Rx Instructions: As directed- two times daily Farxiga 10 mg tablet 10 mg PO DAILY Qty: 90 1RF prednisone 20 mg tablet 40 mg PO DAILY Qty: 90 1RF folic acid 1 mg tablet See Rx Instructions .ROUTE .COMPLEX Qty: 30 3RF Dose Instruction: TAKE ONE TABLET BY MOUTH EVERY DAY Rx Instructions: TAKE ONE TABLET BY MOUTH EVERY DAY prochlorperazine maleate [Compazine] 10 mg tablet 10 mg PO Q4H PRN (Reason: Mild Nausea) Qty: 30 3RF lovastatin 40 mg tablet 40 mg PO QPM Discharge Orders: Discharge ED (Routine); Ordered 03/03/23 Ordered By: Oneal Stearns Referrals: Cedric Padilla MD [Primary Care Provider] - Discharge Diet: Diabetic Patient Instructions: Diabetic Hyperglycemia (ED), Opioid Safety, Pain Management Activity Restrictions/Additional Instructions: 1. It is unclear why patient is on prednisone. There may be a very good reason. However I would like her doctor to weigh in on whether the benefits outweigh the risk. In particular, whether hyperglycemia is tolerable side effect. If her hyperglycemia continues, her insulin will need to be adjusted. 2. She has acute hyperglycemia partly due to eating approximately 15 pieces of candy prior to arrival. This should improve with sliding scale insulin and time. She was given insulin glargine 10 mg and insulin regular 10 mg in the ER. She was also given 1 L of fluid. There is no signs of diabetic ketoacidosis. Continue checking her blood sugar at home and adjust accordingly. Coding Level of Care Code ED Advertising Agency Manager for Graciela Felix
[2023-03-03 22:30] VITALS: BP 133/79; PULSE 90; O2SAT 96
[2023-03-03 22:51] VITALS: BP 132/79; PULSE 79; O2SAT 100
== END 2023-03-03 22:53 | disposition home or self-care (01) ==
PROVIDERS: Emergency Provider Emergency Medicine; PCP Internal Medicine
DX: E11.65 Type 2 diabetes mellitus with hyperglycemia (principal); Z79.4 Long term (current) use of insulin; Z79.84 Long term (current) use of oral hypoglycemic drugs; E78.5 Hyperlipidemia, unspecified
CPT/HCPCS: 36415; 36416; 80048; 82962; 96361; 96372; 96374; 99284; J1815; J7030

== ENCOUNTER → 2023-03-08 14:52 | Outpatient (BNVA) | payer MEDICARE, MEDICAID, SELFPAY | PROVIDERS: PCP Internal Medicine; Visit Provider Nurse Practitioner Family | DX: L82.1 Other seborrheic keratosis (principal); L57.8 Other skin changes due to chronic exposure to nonionizing radiation; L81.4 Other melanin hyperpigmentation; D22.62 Melanocytic nevi of left upper limb, including shoulder | CPT/HCPCS: 17110; 99213 ==

== ENCOUNTER 2023-03-29 08:56 | Oncology outpatient (recurring) (ONCR) | payer MEDICARE, MEDICAID, SELFPAY ==
[2023-03-29 09:01] VITALS: BP 108/63; PULSE 67; RESP 16; TEMP 36.1; O2SAT 98
[2023-03-29 09:27] LABS: Basophils % 0.4 %; Eosinophils % 0.4 %; Hematocrit 46.2 % (36-47); Lymphocytes # 1.6 10^3/uL (0.8-4.8); Lymphocytes % 30.7 %; Mean Corpuscular HGB Conc 31.4 g/dL (30-55); Mean Corpuscular Hemoglobin 28.5 pg (27-33); Mean Corpuscular Volume 90.8 fl (85-98); Mean Platelet Volume 9.5 fL (7.4-10.4); Monocytes # 0.5 10^3/uL (0.2-0.9); Monocytes % 9.3 %; Neutrophils # 3.09 10^3/uL (1.8-7.7); Neutrophils % 58.4 %; Nucleated Red Blood Cells % 0 %; Platelet Count 189 10^3/cmm (157-399); Red Blood Count 5.09 10^6/uL (3.85-5.65); Red Cell Distribution Width 14.4 % (12.1-15.1); Reticulocyte % 1.2 % (0.5-2.0); White Blood Count 5.28 10^3/uL (3.29-11.43)
[2023-03-29 10:00] LABS: Alanine Aminotransferase 26 U/L (0-33); Albumin Level 3.8 g/dL (3.5-5.2); Alkaline Phosphatase 51 U/L (35-105); Blood Urea Nitrogen 13 mg/dL (6-20); Calcium 9.2 mg/dL (8.5-10.5); Carbon Dioxide 30 mmol/L (22-29); Chloride 106 mmol/L (98-107); Glomerular Filtration Rate 129.6 mL/min (90-130); Glucose 105 mg/dL (65-115); Osmolality Calculated 300 mOsm/kg (285-295); Sodium 145 mmol/L (136-145); Total Bilirubin 0.8 mg/dL (0.15-1.2); Total Protein 5.8 g/dL (6.6-8.7)
[2023-03-29 10:02] LABS: Anion Gap 12.7 (5-19); Aspartate Amino Transferase 21 U/L (0-32); Lactate Dehydrogenase 215 U/L (135-214); Potassium 3.7 mmol/L (3.5-5.1)
== END 2023-04-11 23:59 | disposition home or self-care (01) ==
PROVIDERS: PCP Internal Medicine; Visit Provider Internal Medicine Medical Oncology
DX: D59.10 Autoimmune hemolytic anemia, unspecified (principal); Z79.899 Other long term (current) drug therapy
CPT/HCPCS: 36415; 80053; 83010; 83615; 85025; 85045; 99214

== ENCOUNTER → 2023-04-18 12:25 | Outpatient (BNVA) | payer MEDICARE, MEDICAID, SELFPAY | PROVIDERS: PCP Internal Medicine; Visit Provider Nurse Practitioner Women's Health | DX: Z01.419 Encounter for gynecological examination (general) (routine) without abnormal findings (principal); D59.10 Autoimmune hemolytic anemia, unspecified; N91.0 Primary amenorrhea; N63.11 Unspecified lump in the right breast, upper outer quadrant; F79 Unspecified intellectual disabilities | CPT/HCPCS: 82670; 83001; 84146; 84443 ==

== ENCOUNTER → 2023-05-09 14:46 | Outpatient (BNVA) | payer MEDICARE, MEDICAID, SELFPAY | PROVIDERS: PCP Internal Medicine; Visit Provider Dermatology | DX: L82.1 Other seborrheic keratosis (principal); L81.4 Other melanin hyperpigmentation; L84 Corns and callosities; M79.671 Pain in right foot | CPT/HCPCS: 99213 ==

== ENCOUNTER → 2023-05-19 11:05 | Outpatient (BNVA) | payer MEDICARE, MEDICAID, SELFPAY | PROVIDERS: PCP Internal Medicine; Visit Provider Podiatrist Foot & Ankle Surgery | DX: L84 Corns and callosities (principal); E11.9 Type 2 diabetes mellitus without complications; Z79.4 Long term (current) use of insulin; Z79.84 Long term (current) use of oral hypoglycemic drugs | CPT/HCPCS: 99203 ==

== ENCOUNTER 2023-05-23 12:20 | Outpatient (CLI) | payer MEDICARE, MEDICAID, SELFPAY ==
--- NOTE | 2023-05-23 12:26 | MM_ITS ---
WS: [id number] ADDITIONAL VIEWS RIGHT MAMMOGRAM WITH DIGITAL BREAST TOMOSYNTHESIS. RIGHT BREAST ULTRASOUND HISTORY: N63.10 - Unspecified lump in the right breast, unspecifie... COMPARISON: 10/04/2022, 09/17/2021, 03/13/2020 RIGHT MAMMOGRAM: Spot compression views and true ML with digital breast tomosynthesis and SM. Palpable marker is placed over the upper outer quadrant of the RIGHT breast. There is no underlying a bnormality identified. No suspicious mass or distortion. RIGHT BREAST ULTRASOUND 2-D and color Doppler imaging submitted. Ultrasound is directed by the patient to the 12:00 axis. There is no mass or abnormality identified. IMPRESSION: MM/[place] [id number] BI-RADS: 2-Benign FOLLOW UP: 1 Year Follow-up
--- NOTE | 2023-05-23 13:00 | US_ITS ---
WS: [id number] ADDITIONAL VIEWS RIGHT MAMMOGRAM WITH DIGITAL BREAST TOMOSYNTHESIS. RIGHT BREAST ULTRASOUND HISTORY: N63.10 - Unspecified lump in the right breast, unspecifie... COMPARISON: 10/04/2022, 09/17/2021, 03/13/2020 RIGHT MAMMOGRAM: Spot compression views and true ML with digital breast tomosynthesis and SM. Palpable marker is placed over the upper outer quadrant of the RIGHT breast. There is no underlying a bnormality identified. No suspicious mass or distortion. RIGHT BREAST ULTRASOUND 2-D and color Doppler imaging submitted. Ultrasound is directed by the patient to the 12:00 axis. There is no mass or abnormality identified. IMPRESSION: US/US breast RT limited* [id number] BI-RADS: 2-Benign FOLLOW UP: 1 Year Follow-up
== END 2023-05-23 12:21 | disposition home or self-care (01) ==
LOC: RAD 12:20
PROVIDERS: PCP Internal Medicine; Visit Provider Nurse Practitioner Women's Health
DX: N63.11 Unspecified lump in the right breast, upper outer quadrant (principal)
CPT/HCPCS: 76642; 77061; G0279

== ENCOUNTER 2023-06-27 11:28 | Oncology outpatient (recurring) (ONCR) | payer MEDICARE, MEDICAID, SELFPAY ==
[2023-06-27 11:40] VITALS: BP 108/74; PULSE 78; RESP 16; TEMP 36.5; O2SAT 96
[2023-06-27 11:45] LABS: Basophils % 0.3 %; Hematocrit 49.6 % (36-47); Lymphocytes # 0.9 10^3/uL (0.8-4.8); Lymphocytes % 9.7 %; Mean Corpuscular HGB Conc 31.7 g/dL (30-55); Mean Corpuscular Hemoglobin 28.5 pg (27-33); Mean Corpuscular Volume 90.2 fl (85-98); Monocytes # 0.3 10^3/uL (0.2-0.9); Monocytes % 2.6 %; Neutrophils # 8.32 10^3/uL (1.8-7.7); Neutrophils % 86.4 %; Nucleated Red Blood Cells % 0 %; Platelet Count 204 10^3/cmm (157-399); Red Cell Distribution Width 14.6 % (12.1-15.1); White Blood Count 9.63 10^3/uL (3.29-11.43)
[2023-06-27 12:04] LABS: Alanine Aminotransferase 17 U/L (0-33); Albumin Level 4.3 g/dL (3.5-5.2); Alkaline Phosphatase 51 U/L (35-105); Anion Gap 15.1 (5-19); Aspartate Amino Transferase 14 U/L (0-32); Blood Urea Nitrogen 15 mg/dL (6-20); Calcium 9.8 mg/dL (8.5-10.5); Carbon Dioxide 29 mmol/L (22-29); Chloride 103 mmol/L (98-107); Globulin 2.3 g/dL (1.3-4.6); Glomerular Filtration Rate 104.6 mL/min (90-130); Glucose 167 mg/dL (65-115); Lactate Dehydrogenase 171 U/L (135-214); Osmolality Calculated 301 mOsm/kg (285-295); Potassium 4.1 mmol/L (3.5-5.1); Sodium 143 mmol/L (136-145); Total Bilirubin 0.9 mg/dL (0.15-1.2); Total Protein 6.6 g/dL (6.6-8.7)
== END 2023-07-12 23:59 | disposition home or self-care (01) ==
PROVIDERS: Nurse Practitioner Family; PCP Internal Medicine; Visit Provider Internal Medicine Medical Oncology
DX: D59.10 Autoimmune hemolytic anemia, unspecified (principal); Z79.899 Other long term (current) drug therapy; D64.9 Anemia, unspecified
CPT/HCPCS: 36415; 80053; 83615; 85025; 99214

== ENCOUNTER → 2023-08-16 09:51 | Outpatient (BNVA) | payer MEDICARE, MEDICAID, SELFPAY | PROVIDERS: PCP Internal Medicine; Visit Provider Obstetrics & Gynecology | DX: R10.2 Pelvic and perineal pain (principal) | CPT/HCPCS: 76856 ==

== ENCOUNTER → 2023-09-06 13:38 | Outpatient (BNVA) | payer MEDICARE, MEDICAID, SELFPAY | PROVIDERS: PCP Internal Medicine; Visit Provider Dermatology | DX: L82.1 Other seborrheic keratosis (principal); L81.4 Other melanin hyperpigmentation | CPT/HCPCS: 99213 ==

== ENCOUNTER 2023-09-19 11:36 | Oncology outpatient (recurring) (ONCR) | payer MEDICARE, MEDICAID, SELFPAY ==
[2023-09-19 12:35] LABS: Basophils % 0.4 %; Eosinophils % 0.2 %; Hematocrit 50.3 % (36-47); Lymphocytes # 1.1 10^3/uL (0.8-4.8); Lymphocytes % 12.8 %; Mean Corpuscular HGB Conc 31.8 g/dL (30-55); Mean Corpuscular Hemoglobin 28.5 pg (27-33); Mean Corpuscular Volume 89.5 fl (85-98); Mean Platelet Volume 9.9 fL (7.4-10.4); Monocytes # 0.4 10^3/uL (0.2-0.9); Neutrophils # 6.72 10^3/uL (1.8-7.7); Neutrophils % 81.2 %; Nucleated Red Blood Cells % 0 %; Platelet Count 191 10^3/cmm (157-399); Red Blood Count 5.62 10^6/uL (3.85-5.65); Red Cell Distribution Width 13.7 % (12.1-15.1); White Blood Count 8.27 10^3/uL (3.29-11.43)
[2023-09-19 13:06] LABS: Alanine Aminotransferase 25 U/L (0-33); Albumin Level 4.2 g/dL (3.5-5.2); Alkaline Phosphatase 64 U/L (35-105); Anion Gap 15.4 (5-19); Aspartate Amino Transferase 26 U/L (0-32); Blood Urea Nitrogen 17 mg/dL (6-20); Calcium 9.5 mg/dL (8.5-10.5); Carbon Dioxide 26 mmol/L (22-29); Chloride 104 mmol/L (98-107); Globulin 2.4 g/dL (1.3-4.6); Glomerular Filtration Rate 129.1 mL/min (90-130); Glucose 193 mg/dL (65-115); Lactate Dehydrogenase 183 U/L (135-214); Osmolality Calculated 299 mOsm/kg (285-295); Potassium 4.4 mmol/L (3.5-5.1); Sodium 141 mmol/L (136-145); Total Bilirubin 0.8 mg/dL (0.15-1.2); Total Protein 6.6 g/dL (6.6-8.7)
== END 2023-10-10 23:59 | disposition home or self-care (01) ==
PROVIDERS: PCP Internal Medicine; Visit Provider Internal Medicine Medical Oncology
DX: D59.10 Autoimmune hemolytic anemia, unspecified (principal); Z79.899 Other long term (current) drug therapy; D64.9 Anemia, unspecified
CPT/HCPCS: 36415; 80053; 83615; 85025; 99214

== ENCOUNTER 2023-10-05 12:40 | Outpatient (CLI) | payer MEDICARE, MEDICAID, SELFPAY ==
--- NOTE | 2023-10-05 14:59 | P.DIET_ITS ---
Reason for Visit: Type 2 diabetes mellitus Person Interviewed: Patient and Caregiver Medical History, Labs and Background: Vicky is Luma's caregiver and said she has hemolytic anemia as well as DM2, which is currently being managed with sliding scale insulin as well as Metformin, Victoza, Farxiga - and she is taking prednisone which is slowly been reduced and hopefully will end soon. Height: 4 ft 11 in Weight: 165 lb BMI: 29.3 kg/m2 Weight History: When she joined the home in january of 2019 Luma weighed 168lbs. Concerns and Goals: Vicky would like to have a meal plan to help Luma manage her DM. Sleep Hygiene: She goes to bed at 8pm and is up by 5am. Physical Activity: In general Luma resists exercise and doesn't typically join in when asked if she wants to walk. 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 Sometimes she is given a dollar to buy a diet soda from a machine. She doesn't drink coffee and has maybe 1 bottle water/day. Additional Comments: Olivia likes popcorn and fruits, but also likes chips. At the home they keep her big bag of chips and try to ration it out because she has eaten the whole bag before. Yogurt and cottage cheese are also favorites. Recommendations: Assessment: Luma was pleasant and Vicky who is an internet systems administrator at the home was also easy-going, but neither were sure why they were there. When asked about her diet Olivia was forthright and Vicky filled in details here and there. Her meals/snacks are both at the [facility] and the home and in both places she has choices, her own money, and makes her own plate. Nutrition diagnosis: Inadequate nutrition knowledge r/t dx of DM AEB Olivia had no training in a diabetic diet. Intervention: We looked at handouts including how to count carbohydrates, Diab etic MyPlate, and 1500/1800 meal plans for Olivia. It seems that the home has some input into what Olivia eats, but in the end she makes decisions for herself. It is a good sign that she has lost weight since she got there. And it is also helpful that they try and ration her potato chips so that she doesn't eat the whole bag. We discussed drinking more water, trying to have roughly 150 grams carbs/day or 2-3 at meals and 1-2 with snacks, rounding out carb choices with lean proteins and healthy fats. Then we talked about walking 10-15 minutes/day and all the benefits with exercise. More water was encouraged. And lastly we talked of always having some kind of protein or fat with carbs when she snacked. Monitoring and evaluation: On the take home sheet are my office email and phone number/extension for f/u questions. With people at the home helping out and with Olivia willing to exercise some and drink water/ try to eat nutrient dense food, I am hopeful! Coding Level of Care Code Nutrition/Individ/Init 45min Time Spent (min) 45
== END 2023-10-05 12:41 | disposition home or self-care (01) ==
LOC: DIET 12:41
PROVIDERS: PCP Internal Medicine; Visit Provider Internal Medicine Medical Oncology
DX: E11.9 Type 2 diabetes mellitus without complications (principal)
CPT/HCPCS: 97802

== ENCOUNTER → 2023-11-10 10:09 | Outpatient (BNVA) | payer MEDICARE, MEDICAID, SELFPAY | PROVIDERS: PCP Internal Medicine; Visit Provider Dermatology | DX: L82.1 Other seborrheic keratosis (principal); L60.3 Nail dystrophy | CPT/HCPCS: 99213 ==

== ENCOUNTER 2023-12-01 07:50 | Oncology outpatient (recurring) (ONCR) | payer MEDICARE, MEDICAID, SELFPAY ==
[2023-12-01 08:13] LABS: Basophils % 0.6 %; Eosinophils # 0.1 10^3/uL (0.0-0.8); Eosinophils % 1.4 %; Hematocrit 47.1 % (36-47); Lymphocytes # 2.9 10^3/uL (0.8-4.8); Lymphocytes % 44.5 %; Mean Corpuscular Hemoglobin 28.4 pg (27-33); Mean Corpuscular Volume 91.6 fl (85-98); Mean Platelet Volume 9.8 fL (7.4-10.4); Monocytes # 0.9 10^3/uL (0.2-0.9); Monocytes % 13.2 %; Neutrophils # 2.58 10^3/uL (1.8-7.7); Neutrophils % 39.1 %; Nucleated Red Blood Cells % 0 %; Platelet Count 181 10^3/cmm (157-399); Red Blood Count 5.14 10^6/uL (3.85-5.65); Red Cell Distribution Width 14.4 % (12.1-15.1); White Blood Count 6.59 10^3/uL (3.29-11.43)
[2023-12-01 08:31] LABS: Alanine Aminotransferase 148 U/L (0-33); Albumin Level 3.8 g/dL (3.5-5.2); Alkaline Phosphatase 118 U/L (35-105); Anion Gap 14.1 (5-19); Aspartate Amino Transferase 109 U/L (0-32); Blood Urea Nitrogen 13 mg/dL (6-20); Calcium 9.1 mg/dL (8.5-10.5); Carbon Dioxide 28 mmol/L (22-29); Chloride 107 mmol/L (98-107); Globulin 2.1 g/dL (1.3-4.6); Glomerular Filtration Rate 104.6 mL/min (90-130); Glucose 195 mg/dL (65-115); Lactate Dehydrogenase 167 U/L (135-214); Osmolality Calculated 305 mOsm/kg (285-295); Potassium 4.1 mmol/L (3.5-5.1); Sodium 145 mmol/L (136-145); Total Bilirubin 0.5 mg/dL (0.15-1.2); Total Protein 5.9 g/dL (6.6-8.7)
== END 2023-12-10 23:59 | disposition home or self-care (01) ==
PROVIDERS: Nurse Practitioner Family; PCP Internal Medicine; Visit Provider Internal Medicine Medical Oncology
DX: D59.10 Autoimmune hemolytic anemia, unspecified (principal); Z79.899 Other long term (current) drug therapy; Z79.52 Long term (current) use of systemic steroids
CPT/HCPCS: 36415; 80053; 83615; 85025; 99214

== ENCOUNTER → 2023-12-08 11:01 | Outpatient (BNVA) | payer MEDICARE, MEDICAID, SELFPAY | PROVIDERS: PCP Internal Medicine; Visit Provider Podiatrist Foot & Ankle Surgery | DX: L84 Corns and callosities (principal); E11.69 Type 2 diabetes mellitus with other specified complication; Z79.4 Long term (current) use of insulin; Z79.84 Long term (current) use of oral hypoglycemic drugs | CPT/HCPCS: 99213 ==

== ENCOUNTER 2023-12-22 08:58 | Oncology outpatient (recurring) (ONCR) | payer MEDICARE, MEDICAID, SELFPAY ==
[2023-12-22 09:42] LABS: Basophils # 0.1 10^3/uL (0.0-0.1); Basophils % 0.7 %; Eosinophils # 0.1 10^3/uL (0.0-0.8); Hematocrit 46.1 % (36-47); Lymphocytes # 2.5 10^3/uL (0.8-4.8); Lymphocytes % 36.5 %; Mean Corpuscular HGB Conc 31.5 g/dL (30-55); Mean Corpuscular Hemoglobin 28.4 pg (27-33); Mean Corpuscular Volume 90.4 fl (85-98); Mean Platelet Volume 9.9 fL (7.4-10.4); Monocytes # 0.9 10^3/uL (0.2-0.9); Monocytes % 12.4 %; Neutrophils # 3.34 10^3/uL (1.8-7.7); Neutrophils % 48.1 %; Nucleated Red Blood Cells % 0 %; Platelet Count 159 10^3/cmm (157-399); Red Cell Distribution Width 14.1 % (12.1-15.1); White Blood Count 6.95 10^3/uL (3.29-11.43)
[2023-12-22 09:59] LABS: Alanine Aminotransferase 60 U/L (0-33); Albumin Level 3.8 g/dL (3.5-5.2); Alkaline Phosphatase 79 U/L (35-105); Anion Gap 14.3 (5-19); Aspartate Amino Transferase 45 U/L (0-32); Blood Urea Nitrogen 14 mg/dL (6-20); Calcium 9.1 mg/dL (8.5-10.5); Carbon Dioxide 27 mmol/L (22-29); Chloride 108 mmol/L (98-107); Globulin 1.9 g/dL (1.3-4.6); Glomerular Filtration Rate 129.1 mL/min (90-130); Glucose 171 mg/dL (65-115); Osmolality Calculated 305 mOsm/kg (285-295); Potassium 4.3 mmol/L (3.5-5.1); Sodium 145 mmol/L (136-145); Total Bilirubin 0.5 mg/dL (0.15-1.2); Total Protein 5.7 g/dL (6.6-8.7)
== END 2024-01-10 23:59 | disposition home or self-care (01) ==
PROVIDERS: Nurse Practitioner Family; PCP Internal Medicine; Visit Provider Internal Medicine Medical Oncology
DX: D59.10 Autoimmune hemolytic anemia, unspecified (principal); Z79.899 Other long term (current) drug therapy; Z79.52 Long term (current) use of systemic steroids
CPT/HCPCS: 36415; 80053; 85025; 99214

== ENCOUNTER 2024-01-10 13:40 | Outpatient (CLI) | payer MEDICARE, MEDICAID, SELFPAY ==
--- NOTE | 2024-01-10 13:40 | MM_ITS ---
WS: [id number] BILATERAL 3D TOMOSYNTHESIS DIGITAL SCREENING MAMMOGRAPHY WITH CAD CLINICAL INFORMATION: routine screening HISTORY: Screening mammogram. No current complaints. COMPARISON: 2022 TECHNIQUE: Bilateral CC and MLO views. FINDINGS: Scattered fibroglandular densities bilaterally. 1.1 cm ovoid asymmetric density subareolar LEFT breas t progressed compared to previous. Recommend further evaluation with ultrasound. Incidental punctate and lucent centered calcifications. RIGHT breast is unchanged. MM/[place] [id number] IMPRESSION: BI-RADS: 0-Incomplete: Need additional imaging evaluation FOLLOW UP: Need Additional Imaging Recommend subareolar LEFT breast ultrasound
== END 2024-01-10 13:41 | disposition home or self-care (01) ==
PROVIDERS: PCP Nurse Practitioner Family; Visit Provider Nurse Practitioner Family
DX: Z12.31 Encounter for screening mammogram for malignant neoplasm of breast (principal)
CPT/HCPCS: 77063; 77067

== ENCOUNTER 2024-01-22 08:42 | Oncology outpatient (recurring) (ONCR) | payer MEDICARE, MEDICAID, SELFPAY ==
[2024-01-22 08:59] LABS: Basophils # 0.1 10^3/uL (0.0-0.1); Basophils % 0.6 %; Eosinophils # 0.1 10^3/uL (0.0-0.8); Lymphocytes % 37.1 %; Mean Corpuscular HGB Conc 31.7 g/dL (30-55); Mean Corpuscular Hemoglobin 28.7 pg (27-33); Mean Corpuscular Volume 90.7 fl (85-98); Mean Platelet Volume 9.3 fL (7.4-10.4); Monocytes % 11.9 %; Neutrophils # 3.84 10^3/uL (1.8-7.7); Neutrophils % 48.1 %; Nucleated Red Blood Cells % 0 %; Platelet Count 215 10^3/cmm (157-399); Red Blood Count 5.29 10^6/uL (3.85-5.65); Red Cell Distribution Width 14.4 % (12.1-15.1); White Blood Count 7.98 10^3/uL (3.29-11.43)
[2024-01-22 09:20] LABS: Alanine Aminotransferase 71 U/L (0-33); Albumin Level 3.9 g/dL (3.5-5.2); Alkaline Phosphatase 110 U/L (35-105); Anion Gap 14.3 (5-19); Aspartate Amino Transferase 29 U/L (0-32); Blood Urea Nitrogen 19 mg/dL (6-20); Carbon Dioxide 27 mmol/L (22-29); Chloride 106 mmol/L (98-107); Globulin 2.3 g/dL (1.3-4.6); Glomerular Filtration Rate 87.5 mL/min (90-130); Glucose 238 mg/dL (65-115); Osmolality Calculated 306 mOsm/kg (285-295); Potassium 4.3 mmol/L (3.5-5.1); Sodium 143 mmol/L (136-145); Total Bilirubin 0.6 mg/dL (0.15-1.2); Total Protein 6.2 g/dL (6.6-8.7)
== END 2024-02-10 23:55 | disposition home or self-care (01) ==
LOC: ONCMED 08:42
PROVIDERS: PCP Nurse Practitioner Family; Visit Provider Internal Medicine Medical Oncology
DX: D59.10 Autoimmune hemolytic anemia, unspecified (principal)
CPT/HCPCS: 36415; 80053; 85025

== ENCOUNTER 2024-02-01 12:44 | Outpatient (CLI) | payer MEDICARE, MEDICAID, SELFPAY ==
--- NOTE | 2024-02-01 12:45 | US_ITS ---
WS: [id number] ULTRASOUND BREAST LEFT TECHNIQUE: Ultrasound left breast focused area of concern. CLINICAL INFORMATION: additional imaging requested on mammo COMPARISON: Mammogram 01/10/2024 FINDINGS: Ultrasound subareolar LEFT breast in the area of concern seen on the mammogram. Normal-appearing suba reolar parenchymal tissue. No cystic or solid lesions. No suspicious findings to target for biopsy. R ecommend return to annual screening mammography. IMPRESSION BI-RADS 2 benign Recommend return to annual screening mammography.
== END 2024-02-01 12:45 | disposition home or self-care (01) ==
LOC: RAD 12:44
PROVIDERS: PCP Nurse Practitioner Family; Visit Provider Nurse Practitioner Family
DX: R92.8 Other abnormal and inconclusive findings on diagnostic imaging of breast (principal)
CPT/HCPCS: 76641

== ENCOUNTER → 2024-02-16 10:50 | Outpatient (BNVA) | payer MEDICARE, MEDICAID, SELFPAY | PROVIDERS: PCP Nurse Practitioner Family; Visit Provider Podiatrist Foot & Ankle Surgery | DX: L84 Corns and callosities (principal); E11.69 Type 2 diabetes mellitus with other specified complication; L60.3 Nail dystrophy; Z79.84 Long term (current) use of oral hypoglycemic drugs; Z79.4 Long term (current) use of insulin | CPT/HCPCS: 11721 ==

== ENCOUNTER → 2024-03-19 10:57 | Outpatient (BNVA) | payer MEDICARE, MEDICAID, SELFPAY | PROVIDERS: PCP Nurse Practitioner Family; Visit Provider Obstetrics & Gynecology | DX: Z01.419 Encounter for gynecological examination (general) (routine) without abnormal findings (principal) | CPT/HCPCS: 87624 ==

== ENCOUNTER 2024-03-25 08:55 | Oncology outpatient (recurring) (ONCR) | payer MEDICARE, MEDICAID, SELFPAY ==
[2024-03-25 09:22] LABS: Basophils # 0.1 10^3/uL (0.0-0.1); Basophils % 0.6 %; Eosinophils # 0.1 10^3/uL (0.0-0.8); Hematocrit 48.7 % (36-47); Lymphocytes # 2.6 10^3/uL (0.8-4.8); Lymphocytes % 33.7 %; Mean Corpuscular HGB Conc 31.8 g/dL (30-55); Mean Corpuscular Volume 91.2 fl (85-98); Mean Platelet Volume 10.4 fL (7.4-10.4); Monocytes % 12.5 %; Neutrophils # 4.03 10^3/uL (1.8-7.7); Neutrophils % 51.8 %; Nucleated Red Blood Cells % 0 %; Platelet Count 193 10^3/cmm (157-399); Red Blood Count 5.34 10^6/uL (3.85-5.65); Red Cell Distribution Width 14.1 % (12.1-15.1); White Blood Count 7.78 10^3/uL (3.29-11.43)
[2024-03-25 09:39] LABS: Alanine Aminotransferase 26 U/L (0-33); Albumin Level 4.2 g/dL (3.5-5.2); Alkaline Phosphatase 76 U/L (35-105); Anion Gap 13.6 (5-19); Aspartate Amino Transferase 21 U/L (0-32); Blood Urea Nitrogen 26 mg/dL (6-20); Calcium 9.3 mg/dL (8.5-10.5); Carbon Dioxide 27 mmol/L (22-29); Chloride 108 mmol/L (98-107); Creatinine Clr Calc Pharmacy 114.1398; Globulin 2.2 g/dL (1.3-4.6); Glomerular Filtration Rate 104.6 mL/min (90-130); Glucose 236 mg/dL (65-115); Osmolality Calculated 310 mOsm/kg (285-295); Potassium 4.6 mmol/L (3.5-5.1); Sodium 144 mmol/L (136-145); Total Bilirubin 0.6 mg/dL (0.15-1.2); Total Protein 6.4 g/dL (6.6-8.7)
== END 2024-04-11 23:59 | disposition home or self-care (01) ==
PROVIDERS: PCP Nurse Practitioner Family; Visit Provider Internal Medicine Medical Oncology
DX: D59.10 Autoimmune hemolytic anemia, unspecified (principal)
CPT/HCPCS: 36415; 80053; 85025; 99214

== ENCOUNTER 2024-04-16 14:05 | Outpatient (CLI) | payer MEDICARE, MEDICAID, SELFPAY ==
[2024-04-16 15:08] LABS: Basophils # 0.1 10^3/uL (0.0-0.1); Basophils % 0.6 %; Eosinophils # 0.1 10^3/uL (0.0-0.8); Eosinophils % 1.1 %; Hematocrit 46.3 % (36-47); Lymphocytes # 2.9 10^3/uL (0.8-4.8); Lymphocytes % 34.3 %; Mean Corpuscular HGB Conc 32.2 g/dL (30-55); Mean Corpuscular Hemoglobin 28.6 pg (27-33); Mean Corpuscular Volume 88.9 fl (85-98); Monocytes # 1.1 10^3/uL (0.2-0.9); Monocytes % 12.6 %; Neutrophils # 4.29 10^3/uL (1.8-7.7); Nucleated Red Blood Cells % 0 %; Platelet Count 197 10^3/cmm (157-399); Red Blood Count 5.21 10^6/uL (3.85-5.65); Red Cell Distribution Width 13.5 % (12.1-15.1)
== END 2024-04-16 14:06 | disposition home or self-care (01) ==
LOC: LAB 14:06
PROVIDERS: PCP Nurse Practitioner Family; Visit Provider Nurse Practitioner Family
DX: D59.10 Autoimmune hemolytic anemia, unspecified (principal)
CPT/HCPCS: 36415; 85025

== ENCOUNTER 2024-06-03 08:30 | Oncology outpatient (recurring) (ONCR) | payer MEDICARE, MEDICAID, SELFPAY ==
[2024-05-22 13:01] LABS: Basophils % 0.6 %; Eosinophils # 0.1 10^3/uL (0.0-0.8); Eosinophils % 1.6 %; Hematocrit 42.3 % (36-47); Lymphocytes # 2.7 10^3/uL (0.8-4.8); Lymphocytes % 38.9 %; Mean Corpuscular HGB Conc 31.2 g/dL (30-55); Mean Corpuscular Hemoglobin 27.4 pg (27-33); Mean Corpuscular Volume 87.9 fl (85-98); Mean Platelet Volume 10.5 fL (7.4-10.4); Monocytes % 14.4 %; Neutrophils % 44.1 %; Nucleated Red Blood Cells % 0 %; Platelet Count 172 10^3/cmm (157-399); Red Blood Count 4.81 10^6/uL (3.85-5.65); Red Cell Distribution Width 13.2 % (12.1-15.1); White Blood Count 6.81 10^3/uL (3.29-11.43)
[2024-05-22 13:26] LABS: Alanine Aminotransferase 53 U/L (0-33); Albumin Level 3.8 g/dL (3.5-5.2); Alkaline Phosphatase 103 U/L (35-105); Anion Gap 14.7 (5-19); Aspartate Amino Transferase 35 U/L (0-32); Blood Urea Nitrogen 10 mg/dL (6-20); Calcium 9.2 mg/dL (8.5-10.5); Carbon Dioxide 26 mmol/L (22-29); Chloride 106 mmol/L (98-107); Glomerular Filtration Rate 87.2 mL/min (90-130); Glucose 283 mg/dL (65-115); Osmolality Calculated 303 mOsm/kg (285-295); Potassium 4.7 mmol/L (3.5-5.1); Sodium 142 mmol/L (136-145); Total Bilirubin 0.4 mg/dL (0.15-1.2); Total Protein 5.8 g/dL (6.6-8.7)
[2024-05-22 13:28] LABS: Lactate Dehydrogenase 183 U/L (135-214)
[2024-06-03 08:54] LABS: Basophils # 0.1 10^3/uL (0.0-0.1); Basophils % 0.6 %; Eosinophils # 0.1 10^3/uL (0.0-0.8); Eosinophils % 1.4 %; Hematocrit 45.7 % (36-47); Lymphocytes # 1.9 10^3/uL (0.8-4.8); Mean Corpuscular HGB Conc 30.9 g/dL (30-55); Mean Corpuscular Hemoglobin 27.2 pg (27-33); Mean Corpuscular Volume 88.1 fl (85-98); Mean Platelet Volume 10.1 fL (7.4-10.4); Monocytes # 1.1 10^3/uL (0.2-0.9); Monocytes % 13.2 %; Neutrophils # 4.82 10^3/uL (1.8-7.7); Neutrophils % 60.5 %; Nucleated Red Blood Cells % 0 %; Platelet Count 169 10^3/cmm (157-399); Red Blood Count 5.19 10^6/uL (3.85-5.65); Red Cell Distribution Width 13.3 % (12.1-15.1); White Blood Count 7.96 10^3/uL (3.29-11.43)
[2024-06-03 09:16] LABS: Alanine Aminotransferase 33 U/L (0-33); Alkaline Phosphatase 109 U/L (35-105); Anion Gap 15.3 (5-19); Aspartate Amino Transferase 24 U/L (0-32); Blood Urea Nitrogen 19 mg/dL (6-20); Calcium 9.2 mg/dL (8.5-10.5); Carbon Dioxide 24 mmol/L (22-29); Chloride 104 mmol/L (98-107); Creatinine Clr Calc Pharmacy 98.6835; Globulin 2.1 g/dL (1.3-4.6); Glomerular Filtration Rate 87.2 mL/min (90-130); Glucose 296 mg/dL (65-115); Lactate Dehydrogenase 150 U/L (135-214); Osmolality Calculated 301 mOsm/kg (285-295); Potassium 4.3 mmol/L (3.5-5.1); Sodium 139 mmol/L (136-145); Total Bilirubin 0.5 mg/dL (0.15-1.2); Total Protein 6.1 g/dL (6.6-8.7)
== END 2024-06-11 23:59 | disposition home or self-care (01) ==
PROVIDERS: Nurse Practitioner Family; PCP Nurse Practitioner Family; Visit Provider Internal Medicine Medical Oncology
DX: D59.10 Autoimmune hemolytic anemia, unspecified (principal); Z79.52 Long term (current) use of systemic steroids; Z79.899 Other long term (current) drug therapy; Z53.9 Procedure and treatment not carried out, unspecified reason
CPT/HCPCS: 11721; 36415; 80053; 83615; 85025; 99214

== ENCOUNTER 2024-06-18 08:24 | Oncology outpatient (recurring) (ONCR) | payer MEDICARE, MEDICAID, SELFPAY ==
[2024-06-18 08:38] LABS: Basophils # 0.1 10^3/uL (0.0-0.1); Basophils % 0.7 %; Eosinophils # 0.1 10^3/uL (0.0-0.8); Eosinophils % 1.5 %; Hematocrit 46.9 % (36-47); Lymphocytes # 2.5 10^3/uL (0.8-4.8); Lymphocytes % 34.8 %; Mean Corpuscular HGB Conc 31.1 g/dL (30-55); Mean Corpuscular Hemoglobin 27.2 pg (27-33); Mean Corpuscular Volume 87.3 fl (85-98); Mean Platelet Volume 10.6 fL (7.4-10.4); Monocytes # 0.8 10^3/uL (0.2-0.9); Neutrophils # 3.73 10^3/uL (1.8-7.7); Neutrophils % 51.7 %; Nucleated Red Blood Cells % 0 %; Platelet Count 194 10^3/cmm (157-399); Red Blood Count 5.37 10^6/uL (3.85-5.65); Red Cell Distribution Width 13.5 % (12.1-15.1); White Blood Count 7.21 10^3/uL (3.29-11.43)
[2024-06-18 09:00] LABS: Alanine Aminotransferase 22 U/L (0-33); Albumin Level 4.1 g/dL (3.5-5.2); Alkaline Phosphatase 91 U/L (35-105); Blood Urea Nitrogen 15 mg/dL (6-20); Calcium 9.3 mg/dL (8.5-10.5); Carbon Dioxide 25 mmol/L (22-29); Chloride 104 mmol/L (98-107); Globulin 2.3 g/dL (1.3-4.6); Glomerular Filtration Rate 128.6 mL/min (90-130); Glucose 225 mg/dL (65-115); Osmolality Calculated 304 mOsm/kg (285-295); Sodium 143 mmol/L (136-145); Total Bilirubin 0.6 mg/dL (0.15-1.2); Total Protein 6.4 g/dL (6.6-8.7)
[2024-06-18 09:04] LABS: Anion Gap 18.4 (5-19); Aspartate Amino Transferase 22 U/L (0-32); Lactate Dehydrogenase 199 U/L (135-214); Potassium 4.4 mmol/L (3.5-5.1)
== END 2024-07-12 23:59 | disposition home or self-care (01) ==
PROVIDERS: PCP Nurse Practitioner Family; Visit Provider Internal Medicine Medical Oncology
DX: D59.10 Autoimmune hemolytic anemia, unspecified (principal); E11.42 Type 2 diabetes mellitus with diabetic polyneuropathy; D64.9 Anemia, unspecified; Z79.4 Long term (current) use of insulin; Z79.84 Long term (current) use of oral hypoglycemic drugs; Z79.899 Other long term (current) drug therapy
CPT/HCPCS: 36415; 80053; 83615; 85025; 99213

== ENCOUNTER → 2024-06-24 14:57 | Outpatient (BNVA) | payer MEDICARE, MEDICAID, SELFPAY | PROVIDERS: PCP Nurse Practitioner Family; Visit Provider Podiatrist Foot & Ankle Surgery | DX: L60.3 Nail dystrophy (principal); L84 Corns and callosities; G62.9 Polyneuropathy, unspecified; E11.42 Type 2 diabetes mellitus with diabetic polyneuropathy; Z79.84 Long term (current) use of oral hypoglycemic drugs | CPT/HCPCS: 11056; 11721 ==

== ENCOUNTER → 2024-07-09 14:52 | Outpatient (BNVA) | payer MEDICARE, MEDICAID, SELFPAY | PROVIDERS: PCP Nurse Practitioner Family; Visit Provider Dermatology | DX: L82.1 Other seborrheic keratosis (principal); L60.3 Nail dystrophy; D22.39 Melanocytic nevi of other parts of face; D22.5 Melanocytic nevi of trunk | CPT/HCPCS: 99213 ==

== ENCOUNTER 2024-08-26 08:32 | Oncology outpatient (recurring) (ONCR) | payer MEDICARE, MEDICAID, SELFPAY ==
[2024-08-26 09:17] LABS: Basophils # 0.1 10^3/uL (0.0-0.1); Basophils % 0.9 %; Eosinophils # 0.3 10^3/uL (0.0-0.8); Eosinophils % 4.5 %; Lymphocytes # 2.3 10^3/uL (0.8-4.8); Lymphocytes % 32.8 %; Mean Corpuscular HGB Conc 31.6 g/dL (30-55); Mean Corpuscular Hemoglobin 27.6 pg (27-33); Mean Corpuscular Volume 87.5 fl (85-98); Mean Platelet Volume 10.7 fL (7.4-10.4); Monocytes # 0.7 10^3/uL (0.2-0.9); Monocytes % 9.8 %; Neutrophils # 3.64 10^3/uL (1.8-7.7); Neutrophils % 51.7 %; Nucleated Red Blood Cells % 0 %; Platelet Count 175 10^3/cmm (157-399); Red Blood Count 5.14 10^6/uL (3.85-5.65); Red Cell Distribution Width 13.4 % (12.1-15.1); White Blood Count 7.04 10^3/uL (3.29-11.43)
[2024-08-26 09:41] LABS: Alanine Aminotransferase 13 U/L (0-33); Albumin Level 4.1 g/dL (3.5-5.2); Alkaline Phosphatase 90 U/L (35-105); Anion Gap 13.1 (5-19); Aspartate Amino Transferase 17 U/L (0-32); Blood Urea Nitrogen 17 mg/dL (6-20); Carbon Dioxide 28 mmol/L (22-29); Chloride 104 mmol/L (98-107); Glomerular Filtration Rate 104.2 mL/min (90-130); Glucose 267 mg/dL (65-115); Lactate Dehydrogenase 151 U/L (135-214); Osmolality Calculated 303 mOsm/kg (285-295); Potassium 4.1 mmol/L (3.5-5.1); Sodium 141 mmol/L (136-145); Total Bilirubin 0.6 mg/dL (0.15-1.2); Total Protein 6.1 g/dL (6.6-8.7)
== END 2024-09-09 23:59 | disposition home or self-care (01) ==
PROVIDERS: PCP Nurse Practitioner Family; Visit Provider Internal Medicine Medical Oncology
DX: D59.10 Autoimmune hemolytic anemia, unspecified (principal); Z92.25 Personal history of immunosuppression therapy
CPT/HCPCS: 36415; 80053; 83615; 85025; 99214

== ENCOUNTER → 2024-08-27 14:59 | Outpatient (BNVA) | payer MEDICARE, MEDICAID, SELFPAY | PROVIDERS: PCP Nurse Practitioner Family; Visit Provider Podiatrist Foot & Ankle Surgery | DX: E11.42 Type 2 diabetes mellitus with diabetic polyneuropathy (principal); L60.3 Nail dystrophy; L84 Corns and callosities; G62.9 Polyneuropathy, unspecified; Z79.4 Long term (current) use of insulin; Z79.84 Long term (current) use of oral hypoglycemic drugs | CPT/HCPCS: 11056; 11721 ==

== ENCOUNTER 2024-10-28 15:25 | Emergency (ER) | payer MEDICARE, MEDICAID, SELFPAY ==
[2024-10-28 15:46] VITALS: BP 106/68; PULSE 103; TEMP 36.2; O2SAT 96
--- NOTE | 2024-10-28 17:42 | W.ED.FALL ---
HPI - Fall General: Chief Complaint: Extremity Injury, Upper Stated Complaint: hurt shoulder and knee (Fall) Time Seen by Provider: 10/28/24 17:21 Source: patient Mode of arrival: ambulatory Limitations: no limitations History of Present Illness: 54-year-old female presents to the emergency department with complaint of right shoulder, elbow, knee pain after a fall 3 days ago. Patient was denies any loss of consciousness or dizziness. Patient reports that she has been able to ambulate without difficulty. She denies any warmth, swelling, redness, fevers, or chills. Denies striking her head or LOC. No headache, neck pain, back pain. MD complaint: fall Onset (ago): day(s) Fall from: standing Fall witnessed: no Place fall occurred: home Loss of consciousness: None Prolonged down time: no Symptoms prior to fall: none Context: tripped/slipped Location of injury - extremities: Right: shoulder, elbow and knee Severity: mild Associated symptoms-after fall: Denies confusion, difficulty walking, headache(s), neck pain or vertigo Related Data Home Medications ?Medication ?Instructions ?Recorded ?Confirmed lovastatin 40 mg tablet 40 mg PO QPM 09/08/22 08/27/24 cholecalciferol (vitamin D3) 25 25 mcg PO DAILY 09/27/22 08/27/24 mcg (1,000 unit) capsule furosemide 20 mg tablet (Lasix) 20 mg PO DAILY 10/20/22 08/27/24 insulin glargine 100 unit/mL (3 20 unit SUBCUT DAILY 12/26/22 08/27/24 mL) subcutaneous pen insulin lispro 100 unit/mL See Rx Instructions SUBCUT TID 03/29/23 08/27/24 subcutaneous pen prednisolone acetate 1 % eye 1 drp ophthalmic (eye) QID 06/27/23 08/27/24 drops,suspension montelukast 10 mg tablet mg PO 12/22/23 08/27/24 Previous Rx's ?Medication ?Instructions ?Recorded magnesium hydroxide 400 mg/5 mL 30 ml PO DAILY PRN constipation 02/07/20 oral suspension (Milk of Magnesia) #355 mL liraglutide 0.6 mg/0.1 mL (18 mg/3 1.8 mg (0.3 mL) SUBCUT Q24H 90 05/19/21 mL) subcutaneous pen injector days #27 mL (Victoza 3-Arya) pen needle, diabetic, safety 30 #100 ea 09/13/21 gauge x 1/3 (Novofine Autocover) acetaminophen 325 mg tablet 650 mg (2 x 325 mg) PO QID PRN 01/10/22 (Tylenol) pain #90 tabs cetirizine 10 mg tablet 10 mg PO DAILY #30 tabs 01/10/22 multivitamin (One Daily Essential See Rx Instructions .Route 02/22/22 tablet) .COMPLEX #30 tabs metformin 500 mg tablet See Rx Instructions .Route 03/15/22 .COMPLEX #60 tabs blood sugar diagnostic (Truetest #100 ea 04/07/22 Test Strips) lancets 30 gauge (TRUEplus Lancets) #100 ea 04/07/22 dapagliflozin propanediol 10 mg 10 mg PO DAILY #90 tabs 04/14/22 tablet (Farxiga) Diabetic Shoes with 3 pairs of #1 ea 07/06/23 inserts prochlorperazine maleate 10 mg 10 mg PO Q4H PRN Mild Nausea #30 01/23/24 tablet (Compazine) tabs prednisone 1 mg tablet 2 mg (2 x 1 mg) PO DAILY #120 tabs 03/01/24 folic acid 1 mg tablet See Rx Instructions .Route 10/07/24 .COMPLEX #30 tabs Allergies Allergy/AdvReac Type Severity Reaction Status Date / Time latex Allergy ALGY-Rash Verified 10/28/24 15:51 Review of Systems Const: Denies: fever(s) or chills Resp: Denies: dyspnea GI: Denies: nausea or vomiting Musc: Reports: joint pain; Denies: neck pain, back pain, extremity pain, extremity swelling, joint swelling, joint redness, joint warmth or limited range of motion (right shoulder) Neuro: Denies: headache(s), numbness in extremities, weakness in extremities, sensory changes, lack of coordination, difficulty walking, frequent falls, dizziness, vertigo or confusion PFSH ED PFSH: Medical History Intellectual disability No pertinent past medical history neghx: htn,thyroid,dvt/pe PCP: Dr. Padilla Type 2 diabetes mellitus Autoimmune hemolytic anemia Dyslipidemia NLD (necrobiosis lipoidica diabeticorum) Surgical History H/O dilation and curettage Family History Father CAD (coronary artery disease) Heart disease Family/Other Cancer Great great grandfather - Stomach cancer Mother Diabetes Denies family history of Colon cancer Ovarian cancer Prostate cancer Clotting disorder Dementia Hyperlipidemia Psychiatric illness Chronic kidney disease (CKD) Breast cancer Suicide Anesthesia complication Bleeding disorder Lung disease Hypertension Uterine cancer Thyroid disease Stroke Social History Smoking and tobacco/nicotine status: never used tobacco/nicotine Physical Exam Const: COMMON NORMALS: no acute distress, average body habitus, patient oriented x3, no limitations, healthy appearing, alert and well nourished GENERAL APPEARANCE: cooperative HENMT: COMMON NORMALS: normocephalic and atraumatic HEAD & SCALP: normal to inspection, normocephalic and atraumatic FACE & SINUS: normal facial exam Neck/C-Spine: COMMON NORMALS: full ROM CERVICAL SPINE: Yes cervical ROM normal and No Cervical spine tenderness Back/Pelvis: COMMON NORMALS: thoracic and lumbar spine normal to inspection and no thoracic nor lumbar tenderness Extremity: RIGHT UPPER EXTREMITY: Yes shoulder joint and Yes elbow joint RIGHT LOWER EXTREMITY: Yes knee joint OTHER: Patient has full, seemingly painless, range of motion of her right shoulder, elbow, and knee. Mild abrasions. Based on exam I do not have any clinical suspicion for acute fracture. Neuro: COMMON NORMALS: patient oriented x3, moves all extremities, no focal motor deficits and no sensory deficits noted SENSORIUM/ORIENTATION: Yes alert Skin: TRAUMA: abrasion Course Vital Signs: Vital signs: Vital Signs Temperature 97.2 F L 10/28/24 15:46 Pulse Rate 103 H 10/28/24 15:46 Blood Pressure 106/68 10/28/24 15:46 Pulse Oximetry 96 10/28/24 15:46 Oxygen Delivery Me thod Room Air 10/28/24 15:46 MDM - Fall Medical Decision Making Patient has minor discomforts to her right shoulder, elbow, and knee. She has full, painless range of motion to these areas and do not require emergent imaging. She can continue to treat conservatively and follow-up with primary care if symptoms do not improve in the next 1 to 2 weeks. Medical Records I reviewed the patient's medical records. No radiology studies performed this visit Discharge Plan Discharge Patient Disposition: Home Clinical Impression: Multiple joint pain Fall Qualifiers: Encounter type: initial encounter Qualified Code(s): W19.XXXA - Unspecified fall, initial encounter Condition: Stable Prescriptions: No Action montelukast 10 mg tablet PO cholecalciferol (vitamin D3) 25 mcg (1,000 unit) capsule 25 mcg PO DAILY insulin glargine 100 unit/mL (3 mL) insulin pen 20 unit SUBCUT DAILY insulin lispro 100 unit/mL insulin pen See Rx Instructions SUBCUT TID Rx Instructions: 0 to 7 units sliding scale subcutaneously three times daily; Sliding scale furosemide [Lasix] 20 mg tablet 20 mg PO DAILY prednisolone acetate 1 % drops,suspension 1 drp ophthalmic (eye) QID magnesium hydroxide [Milk of Magnesia] 400 mg/5 mL suspension 30 ml PO DAILY PRN (Reason: constipation) Qty: 355 3RF Rx Instructions: take after 3rd day of no BM Victoza 3-Arya 0.6 mg/0.1 mL (18 mg/3 mL) pen injector 1.8 mg SUBCUT Q24H 90 Days Qty: 27 3RF (DME) Novofine Autocover 30 gauge x 1/3 needle See Rx Instructions .ROUTE .MEDSUPPLY Qty: 100 3RF Rx Instructions: As directed acetaminophen [Tylenol] 325 mg tablet 650 mg PO QID PRN (Reason: pain) Qty: 90 3RF Rx Instructions: or tempature greater than 100 degrees cetirizine 10 mg tablet 10 mg PO DAILY Qty: 30 3RF multivitamin [One Daily Essential] Tablet See Rx Instructions .ROUTE .COMPLEX Qty: 30 3RF Dose Instruction: TAKE ONE TABLET BY MOUTH EVERY MORNING Rx Instructions: TAKE ONE TABLET BY MOUTH EVERY MORNING metformin 500 mg tablet See Rx Instructions .ROUTE .COMPLEX Qty: 60 3RF Dose Instruction: TAKE TWO TABLETS BY MOUTH EVERY DAY with largest meal of THE DAY Rx Instructions: TAKE TWO TABLETS BY MOUTH EVERY DAY with largest meal of THE DAY (DME) lancets [TRUEplus Lancets] 30 gauge misc See Rx Instructions .ROUTE .MEDSUPPLY Qty: 100 12RF Rx Instructions: test two times daily (DME) Truetest Test Strips Strip See Rx Instructions .ROUTE .MEDSUPPLY Qty: 100 12RF Rx Instructions: As directed- two times daily Farxiga 10 mg tablet 10 mg PO DAILY Qty: 90 1RF (DME) Diabetic Shoes with 3 pairs of inserts See Rx Instructions .Route .MEDSUPPLY Qty: 1 0RF Rx Instructions: As directed, [facility] prochlorperazine maleate [Compazine] 10 mg tablet 10 mg PO Q4H PRN (Reason: Mild Nausea) Qty: 30 3RF prednisone 1 mg tablet 2 mg PO DAILY Qty: 120 0RF Rx Instructions: 2 mg daily dose change folic acid 1 mg tablet See Rx Instructions .ROUTE .COMPLEX Qty: 30 3RF Dose Instruction: TAKE ONE TABLET BY MOUTH EVERY DAY Rx Instructions: TAKE ONE TABLET BY MOUTH EVERY DAY lovastatin 40 mg tablet 40 mg PO QPM Discharge Orders: Discharge ED (Routine); Ordered 10/28/24 Ordered By: Katy Phillips Referrals: Nohemi Eduardo APRN [Primary Care Provider, Oncology] Activity Restrictions/Additional Instructions: As we discussed, you had minor discomforts to the right shoulder, right knee, and right elbow. You maintained full range of motion of these joints and I do not feel you require emergent imaging at this time. Symptoms most likely will improve with time. You may continue treating conservatively with [id number] analgesics such as Ibuprofen and Tylenol as well as ice and heat. You may follow-up with primary care in 1 to 2 weeks for continued discomfort. Print Language: Macedonian Coding Level of Care Code ED Emergency Service Restorer for Graciela Felix
[2024-10-28 18:44] VITALS: BP 100/62; PULSE 87; RESP 18; O2SAT 99
== END 2024-10-28 18:45 | disposition home or self-care (01) ==
PROVIDERS: Emergency Provider Physician Assistant; PCP Nurse Practitioner Family
DX: M25.521 Pain in right elbow (principal); M25.511 Pain in right shoulder; M25.561 Pain in right knee; W19.XXXA Unspecified fall, initial encounter; Z79.4 Long term (current) use of insulin; Z79.84 Long term (current) use of oral hypoglycemic drugs; E11.9 Type 2 diabetes mellitus without complications
CPT/HCPCS: 99282

== ENCOUNTER → 2024-10-29 15:41 | Outpatient (BNVA) | payer MEDICARE, MEDICAID, SELFPAY | PROVIDERS: PCP Internal Medicine; Visit Provider Podiatrist Foot & Ankle Surgery | DX: E11.42 Type 2 diabetes mellitus with diabetic polyneuropathy (principal); L60.3 Nail dystrophy; L84 Corns and callosities; G62.9 Polyneuropathy, unspecified; Z79.84 Long term (current) use of oral hypoglycemic drugs; Z79.4 Long term (current) use of insulin | CPT/HCPCS: 11055; 11721; 99213 ==

== ENCOUNTER 2024-12-02 13:53 | Oncology outpatient (recurring) (ONCR) | payer MEDICARE, MEDICAID, SELFPAY ==
[2024-12-02 14:13] LABS: Basophils # 0.1 10^3/uL (0.0-0.1); Basophils % 0.8 %; Eosinophils # 0.6 10^3/uL (0.0-0.8); Hematocrit 44.6 % (36-47); Lymphocytes # 2.8 10^3/uL (0.8-4.8); Lymphocytes % 30.6 %; Mean Corpuscular HGB Conc 31.8 g/dL (30-55); Mean Platelet Volume 10.5 fL (7.4-10.4); Monocytes % 11.3 %; Neutrophils # 4.51 10^3/uL (1.8-7.7); Nucleated Red Blood Cells % 0 %; Platelet Count 204 10^3/cmm (157-399); Red Blood Count 5.25 10^6/uL (3.85-5.65); Red Cell Distribution Width 13.7 % (12.1-15.1); White Blood Count 9.02 10^3/uL (3.29-11.43)
[2024-12-02 14:31] LABS: Alanine Aminotransferase 22 U/L (0-33); Alkaline Phosphatase 119 U/L (35-105); Anion Gap 16.6 (5-19); Aspartate Amino Transferase 23 U/L (0-32); Blood Urea Nitrogen 20 mg/dL (6-20); Calcium 9.3 mg/dL (8.5-10.5); Carbon Dioxide 23 mmol/L (22-29); Chloride 104 mmol/L (98-107); Globulin 2.5 g/dL (1.3-4.6); Glomerular Filtration Rate 104.2 mL/min (90-130); Glucose 256 mg/dL (65-115); Osmolality Calculated 299 mOsm/kg (285-295); Potassium 4.6 mmol/L (3.5-5.1); Sodium 139 mmol/L (136-145); Total Bilirubin 0.5 mg/dL (0.15-1.2); Total Protein 6.5 g/dL (6.6-8.7)
[2024-12-02 14:33] LABS: Lactate Dehydrogenase 165 U/L (135-214)
== END 2024-12-09 23:59 | disposition home or self-care (01) ==
PROVIDERS: Nurse Practitioner Family; PCP Internal Medicine; Visit Provider Internal Medicine Medical Oncology
DX: D59.10 Autoimmune hemolytic anemia, unspecified (principal)
CPT/HCPCS: 36415; 80053; 83615; 85025; 99213

== ENCOUNTER → 2025-01-06 08:17 | Outpatient (BNVA) | payer MEDICARE, MEDICAID, SELFPAY | PROVIDERS: PCP Internal Medicine; Visit Provider Dermatology | DX: L82.1 Other seborrheic keratosis (principal); L60.3 Nail dystrophy; D22.39 Melanocytic nevi of other parts of face; D22.5 Melanocytic nevi of trunk | CPT/HCPCS: 99213 ==

== ENCOUNTER 2025-02-05 08:35 | Outpatient (CLI) | payer MEDICARE, MEDICAID, SELFPAY ==
--- NOTE | 2025-02-05 08:40 | MM_ITS ---
WS: [id number] VIEWS: MLO and CC views both breasts. 3D digital tomosynthesis is also included in this exam. Comparison made with prior exam of 09/02/2015, 09/05/2016, 09/12/2017, 02/07/2019, 03/13/2020, 09/17/2021, 10/04/2022, 01/10/2024.. Findings: The breasts are heterogeneously dense, which may obscure small masses. No sign of suspicious mass, tumor calcification or architectural distortion. MM/MM scr BI tomosynthesis [id number] Impression: BI-RADS: 2 - Benign FOLLOW-UP: 1 Year Follow-up This mammogram was also analyzed by the Computer Aided Detection System R2 Imag e Seo Analyst.
== END 2025-02-05 08:36 | disposition home or self-care (01) ==
LOC: RAD 08:36
PROVIDERS: PCP Internal Medicine; Visit Provider Internal Medicine
DX: Z12.31 Encounter for screening mammogram for malignant neoplasm of breast (principal); R92.333 Mammographic heterogeneous density, bilateral breasts
CPT/HCPCS: 77063; 77067

== ENCOUNTER 2025-02-24 13:42 | Oncology outpatient (recurring) (ONCR) | payer MEDICARE, MEDICAID, SELFPAY ==
[2025-02-24 14:16] LABS: Hematocrit 43.8 % (36-47); Hemoglobin 13.90 g/dL (11.27-16.99); Mean Corpuscular HGB Conc 31.7 g/dL (30-55); Mean Corpuscular Hemoglobin 27.3 pg (27-33); Mean Corpuscular Volume 85.9 fl (85-98); Nucleated Red Blood Cells % 0 %; Platelet Count 188 10^3/cmm (157-399); Red Blood Count 5.10 10^6/uL (3.85-5.65); White Blood Count 9.15 10^3/uL (3.29-11.43)
[2025-02-24 14:38] LABS: Alanine Aminotransferase 45 U/L (0-33); Albumin Level 4.1 g/dL (3.5-5.2); Alkaline Phosphatase 119 U/L (35-105); Anion Gap 15.1 (5-19); Aspartate Amino Transferase 30 U/L (0-32); Blood Urea Nitrogen 18 mg/dL (6-20); Calcium 9.2 mg/dL (8.5-10.5); Carbon Dioxide 24 mmol/L (22-29); Chloride 103 mmol/L (98-107); Globulin 2.4 g/dL (1.3-4.6); Glucose 203 mg/dL (65-115); Osmolality Calculated 294 mOsm/kg (285-295); Potassium 4.1 mmol/L (3.5-5.1); Sodium 138 mmol/L (136-145); Total Protein 6.5 g/dL (6.6-8.7)
== END 2025-03-11 23:59 | disposition home or self-care (01) ==
PROVIDERS: Nurse Practitioner Family; PCP Internal Medicine; Visit Provider Internal Medicine Medical Oncology
DX: D59.10 Autoimmune hemolytic anemia, unspecified (principal); Z92.25 Personal history of immunosuppression therapy
CPT/HCPCS: 36415; 80053; 85025; 99213

== ENCOUNTER → 2025-04-29 14:39 | Outpatient (BNVA) | payer MEDICARE, MEDICAID, SELFPAY | PROVIDERS: PCP Internal Medicine; Visit Provider Podiatrist Foot & Ankle Surgery | DX: E11.8 Type 2 diabetes mellitus with unspecified complications (principal); L60.3 Nail dystrophy; L84 Corns and callosities; G62.9 Polyneuropathy, unspecified; E11.42 Type 2 diabetes mellitus with diabetic polyneuropathy; Z79.84 Long term (current) use of oral hypoglycemic drugs | CPT/HCPCS: 11721 ==

== ENCOUNTER 2025-05-26 11:16 | Oncology outpatient (recurring) (ONCR) | payer MEDICARE, MEDICAID, SELFPAY ==
[2025-05-26 11:46] LABS: Hematocrit 45.4 % (36-47); Hemoglobin 14.40 g/dL (11.27-16.99); Mean Corpuscular HGB Conc 31.7 g/dL (30-55); Mean Corpuscular Hemoglobin 27.2 pg (27-33); Mean Corpuscular Volume 85.7 fl (85-98); Nucleated Red Blood Cells % 0 %; Platelet Count 195 10^3/cmm (157-399); Red Blood Count 5.30 10^6/uL (3.85-5.65); White Blood Count 8.57 10^3/uL (3.29-11.43)
[2025-05-26 12:05] LABS: Estmated Average Glucose 166; Hemoglobin A1C 7.4 % (4.0-6.0)
[2025-05-26 12:08] LABS: Alanine Aminotransferase 25 U/L (0-33); Albumin Level 4.2 g/dL (3.5-5.2); Alkaline Phosphatase 82 U/L (35-105); Anion Gap 15.3 (5-19); Aspartate Amino Transferase 22 U/L (0-32); Blood Urea Nitrogen 16 mg/dL (6-20); Calcium 9.3 mg/dL (8.5-10.5); Carbon Dioxide 27 mmol/L (22-29); Chloride 104 mmol/L (98-107); Globulin 2.3 g/dL (1.3-4.6); Glucose 115 mg/dL (65-115); Osmolality Calculated 296 mOsm/kg (285-295); Potassium 4.3 mmol/L (3.5-5.1); Sodium 142 mmol/L (136-145); Total Protein 6.5 g/dL (6.6-8.7)
== END 2025-06-11 23:59 | disposition home or self-care (01) ==
PROVIDERS: Internal Medicine Medical Oncology; PCP Internal Medicine; Visit Provider Nurse Practitioner
DX: D59.10 Autoimmune hemolytic anemia, unspecified (principal); E11.9 Type 2 diabetes mellitus without complications
CPT/HCPCS: 80053; 83036; 85025; 99213